=== PATIENT | male | born 1950 | race Caucasian/White ===

== ENCOUNTER 2017-04-05 16:06 | Inpatient (IN) | payer OTHER ==
[2017-04-05] MEDS ORDERED: ROCEPHIN VIAL 1 GM 1 GM in NS 50 ML IV + SPIKE MINIBAG* 50 ML IV SCH (18:50)
[2017-04-05] MEDS ORDERED: HumuLIN R SUBCUT PRN (18:50)
[2017-04-05 19:15] LABS: BASOPHILS % (AUTO) 0.6 % (0.2-1.0); EOSINOPHILS # (AUTO) 0.1 x10^3/uL (0.0-0.2); EOSINOPHILS % (AUTO) 1.5 % (0.9-2.9); HEMATOCRIT 40.7 % (42.0-54.0); HEMOGLOBIN 14.3 g/dL (13.5-18.0); LYMPHOCYTES # (AUTO) 0.9 X10^3/uL (1.3-2.9); LYMPHOCYTES % (AUTO) 15.8 % (21.0-51.0); MEAN CORPUSCULAR HEMOGLOBIN 29.2 pg (27.0-34.0); MEAN CORPUSCULAR VOLUME 83.5 fL (80.0-100.0); MEAN PLATELET VOLUME 9.2 fL (7.4-11.0); MONOCYTES # (AUTO) 0.8 x10^3/uL (0.3-0.8); MONOCYTES % (AUTO) 14.6 % (0.0-13.0); NEUTROPHILS # (AUTO) 3.7 x10^3/uL (2.2-4.8); NEUTROPHILS % (AUTO) 67.5 % (42.0-75.0); PLATELET COUNT 94 X10^3/uL (150.0-450.0); RED BLOOD COUNT 4.88 X10^6/uL (4.7-6.0); RED CELL DISTRIBUTION WIDTH 13.8 % (11.6-16.5); WHITE BLOOD COUNT 5.5 X10^3/uL (3.6-10.0)
[2017-04-05 19:31] LABS: ALANINE AMINOTRANSFERASE 42 Units/L (12-78); ALBUMIN 3.8 g/dL (3.4-5.0); ALKALINE PHOSPHATASE 77 Units/L (46-116); ASPARTATE AMINO TRANSFERASE 21 Units/L (15-37); BLOOD UREA NITROGEN 15 mg/dL (7-18); CARBON DIOXIDE 28.2 mmol/L (21-32); CHLORIDE 103 mmol/L (98-107); COR NA(FOR HYPERGLY) 138 mmol/L (136-145); CREATININE 1.09 mg/dL (0.70-1.30); SODIUM 137 mmol/L (136-145); TOTAL PROTEIN 7.2 g/dL (6.4-8.2); eGFR BLACK RACES > 60 (>60); eGFR NON BLACK RACES > 60 (>60)
[2017-04-05] MEDS: NS 1000 ML 1,000 ML IV SCH (20:18)
[2017-04-05 20:19] VITALS: BMI 26.5
[2017-04-05] MEDS: NORVASC TAB 5 MG PO SCH (20:21)
[2017-04-05] MEDS: SNACK - Diabetic Appropriate PO SCH (20:22)
[2017-04-06] MEDS: AMARYL TAB 4 MG PO SCH ×2 (06:23→17:34)
--- NOTE | 2017-04-06 08:48 | DR.UPDATE ---
H&P Update History and Physical Update: PATIENT WAS SEEN IN THE OFFICE ON 04/05/17. A H&P WAS COMPLETED PRIOR TO ADMISSION. PATIENT HAS BEEN SEEN AND EXAMINED WITH NO CHANGES NOTED. Changes noted: NO Yes with the following:
[2017-04-06] MEDS ORDERED: NS 100 ML IV + SPIKE MINIBAG* 100 ML IV ONE ×3 (09:14→20:10)
[2017-04-06] MEDS ORDERED: NS 250 ML IV 250 ML IV ONE (09:15)
[2017-04-06] MEDS: ZOSYN VIAL 4.5 GM IV SCH ×3 (09:20→21:37)
[2017-04-06] MEDS: NS 250 ML IV 250 ML IV SCH (09:20)
[2017-04-06] MEDS: NS 1000 ML 1,000 ML IV SCH (09:22)
[2017-04-06] MEDS: ASPIRIN EC 81 MG PO SCH (09:23)
[2017-04-06] MEDS: ZESTRIL TAB 10 MG PO SCH (09:23)
[2017-04-06] MEDS: ZANTAC PO SCH (09:23)
[2017-04-06] MEDS: TOPROL XL PO SCH (09:23)
[2017-04-06] MEDS: CLARITIN PO SCH (09:23)
[2017-04-06] MEDS: PRAVACHOL PO SCH (09:23)
[2017-04-06] MEDS: NORVASC TAB 5 MG PO SCH ×2 (09:23→20:19)
[2017-04-06] MEDS: LANTUS SC SCH ×2 (09:24→20:20)
[2017-04-06] MEDS: TAB-A-VITE PO SCH (09:25)
--- NOTE | 2017-04-06 11:00 | PCM.PROG ---
Progress Note - Progress Note for Day of Date: 04/06/17 - Subjective Subjective: WAS ADMITTED YESTERDAY FOR RLE CELLULITIS. HE IS ALERT AND ORIENTED, LYING IN BED ON MORNING ROUNDS. HE IS NOTED WITH NO COMPLAINTS. HE CONTINUES WITH REDNESS TO RIGHT LOWER LEG AND FOOT WITH SCAB NOTED TO FOOT. NO DRAINAGE NOTED. VITALS THIS AM ARE 98.8-100-21-94%-149/67. CBC WNL EXCEPT RBC4.65, HCT 39, PLT COUNT 74. CMP WNL EXCEPT GLUCOSE 171. WE WILL DISCONTINUE ROCEPHIN AND START ZOSYN 4.5 GM IV Q8H AND OBTAIN A WOUND CULTURE IF WOUND BEGINS TO DRAIN. WE PLAN TO RECHECK CBC AND CMP AND FOLLOW UP WITH PATIENT IN AM. - Past Medical Family Social History Past Med/Fam/Surg Hx: No changes since H&P Allergies: Allergies No Known Drug Allergies Allergy (Verified 04/05/17 18:03) - Review of Systems ROS: No change since H&P - Vital Signs and I&O's Vital Signs: Temperature 98.8 F Pulse Rate [Left Brachial] 100 Respiratory Rate 21 Blood Pressure [Left Arm] 149/67 Blood Pressure 151/70 O2 Sat by Pulse Oximetry 94 Intake and Output: Intake & Output 04/03/17 04/04/17 04/05/17 04/06/17 11:59 11:59 11:59 11:59 Intake Total 1337 Balance 1337 - Physical Exam Oriented: Normal Eyes: Normal Ear: Normal Nose: Normal Throat: Normal Respiratory: Normal Cardiovascular: Normal : Normal Auscultation: Bowel Sounds: Normal Palpation: Normal Tenderness: Normal Skin: Red, Hot, Wound (RIGHT LOWER LEG AND FOOT) Musculoskeletal: Normal Psychiatric: Normal Mood Description: Calm Affect: Normal Speech Pattern: Clear, Appropriate - Laboratory and Diagnostics Result Diagrams: 04/06/17 11:16 04/06/17 11:16 Labs: Laboratory WBC 5.5 X10^3/uL (3.6-10.0) 04/05/17 19:00 RBC 4.88 X10^6/uL (4.7-6.0) 04/05/17 19:00 Hgb 14.3 g/dL (13.5-18.0) 04/05/17 19:00 Hct 40.7 % (42.0-54.0) L 04/05/17 19:00 MCV 83.5 fL (80.0-100.0) 04/05/17 19:00 MCH 29.2 pg (27.0-34.0) 04/05/17 19:00 MCHC 35.0 g/dL (33.0-35.0) 04/05/17 19:00 RDW 13.8 % (11.6-16.5) 04/05/17 19:00 Plt Count 94 X10^3/uL (150.0-450.0) L 04/05/17 19:00 MPV 9.2 fL (7.4-11.0) 04/05/17 19:00 Neut % 67.5 % (42.0-75.0) 04/05/17 19:00 Lymph % 15.8 % (21.0-51.0) L 04/05/17 19:00 [place] % 14.6 % (0.0-13.0) H 04/05/17 19:00 Eos % 1.5 % (0.9-2.9) 04/05/17 19:00 Baso % 0.6 % (0.2-1.0) 04/05/17 19:00 Neut # 3.7 x10^3/uL (2.2-4.8) 04/05/17 19:00 Lymph # 0.9 X10^3/uL (1.3-2.9) L 04/05/17 19:00 [place] # 0.8 x10^3/uL (0.3-0.8) 04/05/17 19:00 Eos # 0.1 x10^3/uL (0.0-0.2) 04/05/17 19:00 Baso # 0.0 X10^3/uL (0.0-0.1) 04/05/17 19:00 Absolute Nucleated RBC 0.0 /100WBC 04/05/17 19:00 Sodium 137 mmol/L (136-145) 04/05/17 19:00 Corrected Sodium 138 mmol/L (136-145) 04/05/17 19:00 Potassium 4.1 mmol/L (3.5-5.1) 04/05/17 19:00 Chloride 103 mmol/L (98-107) 04/05/17 19:00 Carbon Dioxide 28.2 mmol/L (21-32) 04/05/17 19:00 BUN 15 mg/dL (7-18) 04/05/17 19:00 Creatinine 1.09 mg/dL (0.70-1.30) 04/05/17 19:00 Est GFR (MDRD) Af Amer > 60 (>60) 04/05/17 19:00 Est GFR (MDRD) Non-Af > 60 (>60) 04/05/17 19:00 Glucose 144 mg/dL (65-99) H 04/05/17 19:00 Hemoglobin A1c 9.0 % (4.5-6.2) H 04/05/17 19:00 Calcium 9.0 mg/dL (8.5-10.1) 04/05/17 19:00 Corrected Calcium TNP 04/05/17 19:00 Total Bilirubin 0.60 mg/dL (0.2-1.0) 04/05/17 19:00 AST 21 Units/L (15-37) 04/05/17 19:00 ALT 42 Units/L (12-78) 04/05/17 19:00 Alkaline Phosphatase 77 Units/L (46-116) 04/05/17 19:00 Total Protein 7.2 g/dL (6.4-8.2) 04/05/17 19:00 Albumin 3.8 g/dL (3.4-5.0) 04/05/17 19:00 Globulin 3.4 g/dL (2.5-4.5) 04/05/17 19:00 Albumin/Globulin Ratio 1.1 Ratio (1.1-2.1) 04/05/17 19:00 - Plan (1) Cellulitis of right leg Status: Acute Plan: ZOSYN 4.5GM IV Q8H, WOUND CULTURE, CONTINUE TO MONITOR
[2017-04-06 11:32] LABS: BASOPHILS % (AUTO) 0.6 % (0.2-1.0); EOSINOPHILS # (AUTO) 0.1 x10^3/uL (0.0-0.2); EOSINOPHILS % (AUTO) 1.1 % (0.9-2.9); HEMOGLOBIN 13.6 g/dL (13.5-18.0); LYMPHOCYTES # (AUTO) 0.9 X10^3/uL (1.3-2.9); MEAN CORPUSCULAR HEMOGLOBIN 29.2 pg (27.0-34.0); MEAN CORPUSCULAR HGB CONC 34.9 g/dL (33.0-35.0); MEAN CORPUSCULAR VOLUME 83.7 fL (80.0-100.0); MEAN PLATELET VOLUME 9.2 fL (7.4-11.0); MONOCYTES # (AUTO) 0.7 x10^3/uL (0.3-0.8); MONOCYTES % (AUTO) 14.9 % (0.0-13.0); NEUTROPHILS % (AUTO) 64.4 % (42.0-75.0); PLATELET COUNT 74 X10^3/uL (150.0-450.0); RED BLOOD COUNT 4.65 X10^6/uL (4.7-6.0); RED CELL DISTRIBUTION WIDTH 13.8 % (11.6-16.5); WHITE BLOOD COUNT 4.6 X10^3/uL (3.6-10.0)
[2017-04-06 11:40] LABS: ALANINE AMINOTRANSFERASE 35 Units/L (12-78); ALBUMIN 3.4 g/dL (3.4-5.0); ALKALINE PHOSPHATASE 70 Units/L (46-116); ASPARTATE AMINO TRANSFERASE 18 Units/L (15-37); BLOOD UREA NITROGEN 14 mg/dL (7-18); CALCIUM 8.6 mg/dL (8.5-10.1); CARBON DIOXIDE 27.2 mmol/L (21-32); CHLORIDE 103 mmol/L (98-107); COR NA(FOR HYPERGLY) 138 mmol/L (136-145); CREATININE 1.08 mg/dL (0.70-1.30); SODIUM 136 mmol/L (136-145); TOTAL PROTEIN 6.6 g/dL (6.4-8.2); eGFR BLACK RACES > 60 (>60); eGFR NON BLACK RACES > 60 (>60)
[2017-04-06] MEDS: SNACK - Diabetic Appropriate PO SCH (20:20)
[2017-04-07] MEDS: NS 1000 ML 1,000 ML IV SCH ×2 (00:59→15:17)
[2017-04-07] MEDS: NS 250 ML IV 250 ML IV SCH ×2 (00:59→21:19)
[2017-04-07 05:20] LABS: BASOPHILS % (AUTO) 0.4 % (0.2-1.0); EOSINOPHILS # (AUTO) 0.1 x10^3/uL (0.0-0.2); HEMOGLOBIN 13.4 g/dL (13.5-18.0); LYMPHOCYTES % (AUTO) 20.6 % (21.0-51.0); MEAN CORPUSCULAR HEMOGLOBIN 29.7 pg (27.0-34.0); MEAN CORPUSCULAR HGB CONC 35.2 g/dL (33.0-35.0); MEAN CORPUSCULAR VOLUME 84.6 fL (80.0-100.0); MEAN PLATELET VOLUME 9.6 fL (7.4-11.0); MONOCYTES # (AUTO) 0.8 x10^3/uL (0.3-0.8); MONOCYTES % (AUTO) 16.8 % (0.0-13.0); NEUTROPHILS % (AUTO) 61.2 % (42.0-75.0); PLATELET COUNT 79 X10^3/uL (150.0-450.0); RED BLOOD COUNT 4.49 X10^6/uL (4.7-6.0); RED CELL DISTRIBUTION WIDTH 13.6 % (11.6-16.5); WHITE BLOOD COUNT 4.9 X10^3/uL (3.6-10.0)
[2017-04-07] MEDS ORDERED: NS 100 ML IV + SPIKE MINIBAG* 100 ML IV ONE ×3 (05:28→20:53)
[2017-04-07 05:36] LABS: ALANINE AMINOTRANSFERASE 36 Units/L (12-78); ALBUMIN 3.2 g/dL (3.4-5.0); ALKALINE PHOSPHATASE 68 Units/L (46-116); ASPARTATE AMINO TRANSFERASE 23 Units/L (15-37); BLOOD UREA NITROGEN 15 mg/dL (7-18); CALCIUM 8.4 mg/dL (8.5-10.1); CARBON DIOXIDE 23.1 mmol/L (21-32); CHLORIDE 104 mmol/L (98-107); CREATININE 1.04 mg/dL (0.70-1.30); SODIUM 136 mmol/L (136-145); TOTAL PROTEIN 6.4 g/dL (6.4-8.2); eGFR BLACK RACES > 60 (>60); eGFR NON BLACK RACES > 60 (>60)
[2017-04-07] MEDS: ZOSYN VIAL 4.5 GM IV SCH ×3 (05:37→21:06)
[2017-04-07] MEDS: PRAVACHOL PO SCH (08:30)
[2017-04-07] MEDS: AMARYL TAB 4 MG PO SCH ×2 (08:30→17:27)
[2017-04-07] MEDS: TOPROL XL PO SCH (08:30)
[2017-04-07] MEDS: NORVASC TAB 5 MG PO SCH ×2 (08:30→21:06)
[2017-04-07] MEDS: ASPIRIN EC 81 MG PO SCH (08:30)
[2017-04-07] MEDS: ZANTAC PO SCH (08:31)
[2017-04-07] MEDS: CLARITIN PO SCH (08:31)
[2017-04-07] MEDS: TAB-A-VITE PO SCH (08:31)
[2017-04-07] MEDS: ZESTRIL TAB 10 MG PO SCH (08:31)
--- NOTE | 2017-04-07 10:11 | PCM.PROG ---
Progress Note - Progress Note for Day of Date: 04/07/17 - Subjective Subjective: WAS ADMITTED FOR RLE CELLULITIS. HE IS ALERT AND ORIENTED, LYING IN BED ON MORNING ROUNDS. PATIENT'S IS AT BEDSIDE. HE IS NOTED WITH NO COMPLAINTS. HE CONTINUES WITH REDNESS TO RIGHT LOWER LEG AND FOOT WITH SCAB NOTED TO FOOT. LEG APPEARS MORE ERYTHEMATOUS THAN YESTERDAY. NO DRAINAGE NOTED. VITALS THIS AM ARE 99.5-70-20-95%-122/57. CBC WNL EXCEPT RBC4.49, HGB 13.4, HCT 38, PLT COUNT 79. CMP WNL EXCEPT GLUCOSE 107, CALCIUM 8.4, ALBUMIN 3.2. WE WILL CONTINUE WITH CURRENT PLAN OF CARE. WE PLAN TO RECHECK CBC AND CMP AND FOLLOW UP WITH PATIENT IN AM. - Past Medical Family Social History Past Med/Fam/Surg Hx: No changes since H&P Allergies: Allergies No Known Drug Allergies Allergy (Verified 04/05/17 18:03) - Review of Systems ROS: No change since H&P - Vital Signs and I&O's Vital Signs: Temperature 98.8 F Pulse Rate [Right Brachial] 68 Pulse Rate [Left Brachial] 67 Respiratory Rate 20 Blood Pressure [Right Arm] 140/63 Blood Pressure [Left Arm] 144/70 Blood Pressure 151/70 O2 Sat by Pulse Oximetry 95 Intake and Output: Intake & Output 04/04/17 04/05/17 04/06/17 04/07/17 11:59 11:59 11:59 11:59 Intake Total 1337 2030 Balance 1337 2030 - Physical Exam Oriented: Normal Eyes: Normal Ear: Normal Nose: Normal Throat: Normal Respiratory: Normal Cardiovascular: Normal : Normal Auscultation: Bowel Sounds: Normal Palpation: Normal Tenderness: Normal Skin: Red, Hot, Wound (RIGHT LOWER LEG AND FOOT) Musculoskeletal: Normal Psychiatric: Normal Mood Description: Calm Affect: Normal Speech Pattern: Clear, Appropriate - Laboratory and Diagnostics Result Diagrams: 04/07/17 04:25 04/07/17 04:25 Labs: Laboratory WBC 4.9 X10^3/uL (3.6-10.0) 04/07/17 04:25 RBC 4.49 X10^6/uL (4.7-6.0) L 04/07/17 04:25 Hgb 13.4 g/dL (13.5-18.0) L 04/07/17 04:25 Hct 38.0 % (42.0-54.0) L 04/07/17 04:25 MCV 84.6 fL (80.0-100.0) 04/07/17 04:25 MCH 29.7 pg (27.0-34.0) 04/07/17 04:25 MCHC 35.2 g/dL (33.0-35.0) H 04/07/17 04:25 RDW 13.6 % (11.6-16.5) 04/07/17 04:25 Plt Count 79 X10^3/uL (150.0-450.0) L 04/07/17 04:25 MPV 9.6 fL (7.4-11.0) 04/07/17 04:25 Neut % 61.2 % (42.0-75.0) 04/07/17 04:25 Lymph % 20.6 % (21.0-51.0) L 04/07/17 04:25 [place] % 16.8 % (0.0-13.0) H 04/07/17 04:25 Eos % 1.0 % (0.9-2.9) 04/07/17 04:25 Baso % 0.4 % (0.2-1.0) 04/07/17 04:25 Neut # 3.0 x10^3/uL (2.2-4.8) 04/07/17 04:25 Lymph # 1.0 X10^3/uL (1.3-2.9) L 04/07/17 04:25 [place] # 0.8 x10^3/uL (0.3-0.8) 04/07/17 04:25 Eos # 0.1 x10^3/uL (0.0-0.2) 04/07/17 04:25 Baso # 0.0 X10^3/uL (0.0-0.1) 04/07/17 04:25 Absolute Nucleated RBC 0.1 /100WBC 04/07/17 04:25 Sodium 136 mmol/L (136-145) 04/07/17 04:25 Corrected Sodium TNP 04/07/17 04:25 Potassium 3.8 mmol/L (3.5-5.1) 04/07/17 04:25 Chloride 104 mmol/L (98-107) 04/07/17 04:25 Carbon Dioxide 23.1 mmol/L (21-32) 04/07/17 04:25 BUN 15 mg/dL (7-18) 04/07/17 04:25 Creatinine 1.04 mg/dL (0.70-1.30) 04/07/17 04:25 Est GFR (MDRD) Af Amer > 60 (>60) 04/07/17 04:25 Est GFR (MDRD) Non-Af > 60 (>60) 04/07/17 04:25 Glucose 107 mg/dL (65-99) H 04/07/17 04:25 Hemoglobin A1c 9.0 % (4.5-6.2) H 04/05/17 19:00 Calcium 8.4 mg/dL (8.5-10.1) L 04/07/17 04:25 Corrected Calcium 9.0 mg/dL (8.5-10.1) 04/07/17 04:25 Total Bilirubin 0.60 mg/dL (0.2-1.0) 04/07/17 04:25 AST 23 Units/L (15-37) 04/07/17 04:25 ALT 36 Units/L (12-78) 04/07/17 04:25 Alkaline Phosphatase 68 Units/L (46-116) 04/07/17 04:25 Total Protein 6.4 g/dL (6.4-8.2) 04/07/17 04:25 Albumin 3.2 g/dL (3.4-5.0) L 04/07/17 04:25 Globulin 3.2 g/dL (2.5-4.5) 04/07/17 04:25 Albumin/Globulin Ratio 1.0 Ratio (1.1-2.1) L 04/07/17 04:25 - Plan (1) Cellulitis of right leg Status: Acute Plan: ZOSYN 4.5GM IV Q8H, WOUND CULTURE, CONTINUE TO MONITOR (2) Diabetes mellitus Status: Chronic Qualifiers: Diabetes mellitus type: type 2 Diabetes mellitus complication status: with unspecified complications Diabetes mellitus assisted insulin use: with assisted use Qualified Code(s): E11.8 - Type 2 diabetes mellitus with unspecified complications; Z79.4 - detention (current) use of insulin Plan: CONTINUE AMARYL, CONTINUE LANTUS, CONTINUE TO MONITOR (3) Hyperlipidemia Status: Chronic Qualifiers: Hyperlipidemia type: mixed hyperlipidemia Qualified Code(s): E78.2 - Mixed hyperlipidemia Plan: CONTINUE PRAVACHOL, CONTINUE TO MONITOR (4) Hypertension Status: Acute Qualifiers: Hypertension type: essential hypertension Qualified Code(s): I10 - Essential (primary) hypertension Plan: CONTINUE AMLODIPINE, CONTINUE LISINOPRIL, CONTINUE TOPROL, CONTINUE TO MONITOR (5) GERD (gastroesophageal reflux disease) Status: Acute Qualifiers: Esophagitis presence: esophagitis presence not specified Qualified Code(s) : K21.9 - Gastro-esophageal reflux disease without esophagitis Plan: CONTINUE ZANTAC, CONTINUE TO MONITOR
[2017-04-07] MEDS: SNACK - Diabetic Appropriate PO SCH (21:06)
[2017-04-07] MEDS: LANTUS SC SCH (21:07)
[2017-04-07] MEDS ORDERED: TYLENOL 325 MG TAB PO PRN (22:00)
[2017-04-08] MEDS: NS 250 ML IV 250 ML IV SCH ×2 (01:02→13:46)
[2017-04-08 04:59] LABS: BASOPHILS % (AUTO) 0.5 % (0.2-1.0); EOSINOPHILS # (AUTO) 0.1 x10^3/uL (0.0-0.2); EOSINOPHILS % (AUTO) 2.7 % (0.9-2.9); HEMATOCRIT 39.9 % (42.0-54.0); HEMOGLOBIN 13.8 g/dL (13.5-18.0); LYMPHOCYTES # (AUTO) 0.9 X10^3/uL (1.3-2.9); LYMPHOCYTES % (AUTO) 21.9 % (21.0-51.0); MEAN CORPUSCULAR HEMOGLOBIN 29.5 pg (27.0-34.0); MEAN CORPUSCULAR HGB CONC 34.5 g/dL (33.0-35.0); MEAN CORPUSCULAR VOLUME 85.4 fL (80.0-100.0); MEAN PLATELET VOLUME 9.3 fL (7.4-11.0); MONOCYTES # (AUTO) 0.8 x10^3/uL (0.3-0.8); MONOCYTES % (AUTO) 19.4 % (0.0-13.0); NEUTROPHILS # (AUTO) 2.2 x10^3/uL (2.2-4.8); NEUTROPHILS % (AUTO) 55.5 % (42.0-75.0); PLATELET COUNT 76 X10^3/uL (150.0-450.0); RED BLOOD COUNT 4.68 X10^6/uL (4.7-6.0); RED CELL DISTRIBUTION WIDTH 13.4 % (11.6-16.5); WHITE BLOOD COUNT 3.9 X10^3/uL (3.6-10.0)
[2017-04-08 05:10] LABS: ALANINE AMINOTRANSFERASE 41 Units/L (12-78); ALBUMIN 3.1 g/dL (3.4-5.0); ALKALINE PHOSPHATASE 87 Units/L (46-116); ASPARTATE AMINO TRANSFERASE 31 Units/L (15-37); BLOOD UREA NITROGEN 18 mg/dL (7-18); CALCIUM 8.5 mg/dL (8.5-10.1); CHLORIDE 107 mmol/L (98-107); COR CA(FOR HYPOALB) 9.2 mg/dL (8.5-10.1); COR NA(FOR HYPERGLY) 139 mmol/L (136-145); CREATININE 1.12 mg/dL (0.70-1.30); SODIUM 138 mmol/L (136-145); TOTAL PROTEIN 6.4 g/dL (6.4-8.2); eGFR BLACK RACES > 60 (>60); eGFR NON BLACK RACES > 60 (>60)
[2017-04-08] MEDS ORDERED: NS 100 ML IV + SPIKE MINIBAG* 100 ML IV ONE ×3 (05:12→20:54)
[2017-04-08] MEDS: NS 1000 ML 1,000 ML IV SCH ×2 (05:30→21:23)
[2017-04-08] MEDS: ZOSYN VIAL 4.5 GM IV SCH ×3 (05:30→21:19)
[2017-04-08] MEDS: AMARYL TAB 4 MG PO SCH ×2 (08:30→16:23)
[2017-04-08] MEDS: ASPIRIN EC 81 MG PO SCH (09:15)
[2017-04-08] MEDS: ZANTAC PO SCH (09:15)
[2017-04-08] MEDS: TOPROL XL PO SCH (09:15)
[2017-04-08] MEDS: ZESTRIL TAB 10 MG PO SCH (09:15)
[2017-04-08] MEDS: TAB-A-VITE PO SCH (09:20)
[2017-04-08] MEDS: NORVASC TAB 5 MG PO SCH ×2 (09:20→21:16)
[2017-04-08] MEDS: CLARITIN PO SCH (09:20)
[2017-04-08] MEDS: PRAVACHOL PO SCH (09:20)
[2017-04-08] MEDS: VANCOMYCIN 1 GM PREMIX (ADDVANTAGE) 250 ML IV SCH ×2 (10:56→21:15)
[2017-04-08] MEDS ORDERED: PHARMACY CONSULT - VANCOMYCIN XX SCH (11:00)
--- NOTE | 2017-04-08 11:01 | PCM.PROG ---
Progress Note - Progress Note for Day of Date: 04/08/17 - Subjective Subjective: WAS ADMITTED FOR RLE CELLULITIS. HE IS ALERT AND ORIENTED, LYING IN BED ON MORNING ROUNDS. PATIENT'S IS AT BEDSIDE. HE CONTINUES WITH REDNESS TO RIGHT LOWER LEG AND FOOT WITH SCAB NOTED TO FOOT, UNCHANGED SINCE YESTERDAY. VITALS THIS AM ARE 98.1-70-20-97%-144/66. CBC WNL EXCEPT RBC 4.68, HCT 39.9, PLT COUNT 76. CMP WNL EXCEPT GLUCOSE 126, ALBUMIN 3.1. WE WILL ADD VANCOMYCIN 1GM IV Q12H TO TREATMENT PLAN. WE PLAN TO RECHECK CBC AND CMP AND FOLLOW UP WITH PATIENT IN AM. - Past Medical Family Social History Past Med/Fam/Surg Hx: No changes since H&P Allergies: Allergies No Known Drug Allergies Allergy (Verified 04/05/17 18:03) - Review of Systems ROS: No change since H&P - Vital Signs and I&O's Vital Signs: Temperature 98.1 F Pulse Rate [Right Brachial] 74 Pulse Rate [Left Brachial] 67 Respiratory Rate 20 Blood Pressure [Right Arm] 131/61 Blood Pressure [Left Arm] 144/70 Blood Pressure 151/70 O2 Sat by Pulse Oximetry 97 Intake and Output: Intake & Output 04/05/17 04/06/17 04/07/17 04/08/17 11:59 11:59 11:59 11:59 Intake Total 1337 2030 2350 Balance 1337 2030 2350 - Physical Exam Oriented: Normal Eyes: Normal Ear: Normal Nose: Normal Throat: Normal Respiratory: Normal Cardiovascular: Normal : Normal Auscultation: Bowel Sounds: Normal Palpation: Normal Tenderness: Normal Skin: Red, Hot, Wound (RIGHT LOWER LEG AND FOOT) Musculoskeletal: Normal Psychiatric: Normal Mood Description: Calm Affect: Normal Speech Pattern: Clear, Appropriate - Laboratory and Diagnostics Result Diagrams: 04/08/17 04:10 04/08/17 04:10 Labs: 04/07/17 15:18 Foot - Right Gram Stain - Final 04/07/17 15:18 Foot - Right Wound Culture - Preliminary Laboratory WBC 3.9 X10^3/uL (3.6-10.0) 04/08/17 04:10 RBC 4.68 X10^6/uL (4.7-6.0) L 04/08/17 04:10 Hgb 13.8 g/dL (13.5-18.0) 04/08/17 04:10 Hct 39.9 % (42.0-54.0) L 04/08/17 04:10 MCV 85.4 fL (80.0-100.0) 04/08/17 04:10 MCH 29.5 pg (27.0-34.0) 04/08/17 04:10 MCHC 34.5 g/dL (33.0-35.0) 04/08/17 04:10 RDW 13.4 % (11.6-16.5) 04/08/17 04:10 Plt Count 76 X10^3/uL (150.0-450.0) L 04/08/17 04:10 MPV 9.3 fL (7.4-11.0) 04/08/17 04:10 Neut % 55.5 % (42.0-75.0) 04/08/17 04:10 Lymph % 21.9 % (21.0-51.0) 04/08/17 04:10 [place] % 19.4 % (0.0-13.0) H 04/08/17 04:10 Eos % 2.7 % (0.9-2.9) 04/08/17 04:10 Baso % 0.5 % (0.2-1.0) 04/08/17 04:10 Neut # 2.2 x10^3/uL (2.2-4.8) 04/08/17 04:10 Lymph # 0.9 X10^3/uL (1.3-2.9) L 04/08/17 04:10 [place] # 0.8 x10^3/uL (0.3-0.8) 04/08/17 04:10 Eos # 0.1 x10^3/uL (0.0-0.2) 04/08/17 04:10 Baso # 0.0 X10^3/uL (0.0-0.1) 04/08/17 04:10 Absolute Nucleated RBC 0.1 /100WBC 04/08/17 04:10 Sodium 138 mmol/L (136-145) 04/08/17 04:10 Corrected Sodium 139 mmol/L (136-145) 04/08/17 04:10 Potassium 3.6 mmol/L (3.5-5.1) 04/08/17 04:10 Chloride 107 mmol/L (98-107) 04/08/17 04:10 Carbon Dioxide 23.0 mmol/L (21-32) 04/08/17 04:10 BUN 18 mg/dL (7-18) 04/08/17 04:10 Creatinine 1.12 mg/dL (0.70-1.30) 04/08/17 04:10 Est GFR (MDRD) Af Amer > 60 (>60) 04/08/17 04:10 Est GFR (MDRD) Non-Af > 60 (>60) 04/08/17 04:10 Glucose 126 mg/dL (65-99) H 04/08/17 04:10 Hemoglobin A1c 9.0 % (4.5-6.2) H 04/05/17 19:00 Calcium 8.5 mg/dL (8.5-10.1) 04/08/17 04:10 Corrected Calcium 9.2 mg/dL (8.5-10.1) 04/08/17 04:10 Total Bilirubin 0.70 mg/dL (0.2-1.0) 04/08/17 04:10 AST 31 Units/L (15-37) 04/08/17 04:10 ALT 41 Units/L (12-78) 04/08/17 04:10 Alkaline Phosphatase 87 Units/L (46-116) 04/08/17 04:10 Total Protein 6.4 g/dL (6.4-8.2) 04/08/17 04:10 Albumin 3.1 g/dL (3.4-5.0) L 04/08/17 04:10 Globulin 3.3 g/dL (2.5-4.5) 04/08/17 04:10 Albumin/Globulin Ratio 0.9 Ratio (1.1-2.1) L 04/08/17 04:10 - Plan (1) Cellulitis of right leg Status: Acute Plan: START VANCOMYCIN 1GM IV Q12H, CONTINUE ZOSYN 4.5GM IV Q8H, WOUND CULTURE, CONTINUE TO MONITOR (2) Diabetes mellitus Status: Chronic Qualifiers: Diabetes mellitus type: type 2 Diabetes mellitus complication status: with unspecified complications Diabetes mellitus buttermilk drier operator insulin use: with buttermilk drier operator use Qualified Code(s): E11.8 - Type 2 diabetes mellitus with unspecified complications; Z79.4 - emt intermediate (current) use of insulin Plan: CONTINUE AMARYL, CONTINUE LANTUS, CONTINUE TO MONITOR (3) Hyperlipidemia Status: Chronic Qualifiers: Hyperlipidemia type: mixed hyperlipidemia Qualified Code(s): E78.2 - Mixed hyperlipidemia Plan: CONTINUE PRAVACHOL, CONTINUE TO MONITOR (4) Hypertension Status: Acute Qualifiers: Hypertension type: essential hypertension Qualified Code(s): I10 - Essential (primary) hypertension Plan: CONTINUE AMLODIPINE, CONTINUE LISINOPRIL, CONTINUE TOPROL, CONTINUE TO MONITOR (5) GERD (gastroesophageal reflux disease) Status: Acute Qualifiers: Esophagitis presence: esophagitis presence not specified Qualified Code(s) : K21.9 - Gastro-esophageal reflux disease without esophagitis Plan: CONTINUE ZANTAC, CONTINUE TO MONITOR
[2017-04-08] MEDS: SNACK - Diabetic Appropriate PO SCH (21:14)
[2017-04-08] MEDS: COLACE CAP 100 MG PO SCH (21:16)
[2017-04-08] MEDS: LANTUS SC SCH (22:03)
[2017-04-09] MEDS ORDERED: NS 100 ML IV + SPIKE MINIBAG* 100 ML IV ONE ×3 (05:22→21:06)
[2017-04-09] MEDS: ZOSYN VIAL 4.5 GM IV SCH ×3 (05:43→22:26)
[2017-04-09 05:47] LABS: ALANINE AMINOTRANSFERASE 50 Units/L (12-78); ALKALINE PHOSPHATASE 88 Units/L (46-116); ASPARTATE AMINO TRANSFERASE 35 Units/L (15-37); BASOPHILS % (AUTO) 0.6 % (0.2-1.0); BLOOD UREA NITROGEN 18 mg/dL (7-18); CALCIUM 8.3 mg/dL (8.5-10.1); CARBON DIOXIDE 23.5 mmol/L (21-32); CHLORIDE 106 mmol/L (98-107); COR CA(FOR HYPOALB) 9.1 mg/dL (8.5-10.1); CREATININE 0.97 mg/dL (0.70-1.30); EOSINOPHILS # (AUTO) 0.2 x10^3/uL (0.0-0.2); EOSINOPHILS % (AUTO) 4.4 % (0.9-2.9); HEMATOCRIT 37.4 % (42.0-54.0); HEMOGLOBIN 13.1 g/dL (13.5-18.0); LYMPHOCYTES # (AUTO) 1.1 X10^3/uL (1.3-2.9); LYMPHOCYTES % (AUTO) 25.6 % (21.0-51.0); MEAN CORPUSCULAR HEMOGLOBIN 29.8 pg (27.0-34.0); MEAN CORPUSCULAR HGB CONC 35.1 g/dL (33.0-35.0); MEAN CORPUSCULAR VOLUME 84.8 fL (80.0-100.0); MEAN PLATELET VOLUME 9.5 fL (7.4-11.0); MONOCYTES # (AUTO) 0.8 x10^3/uL (0.3-0.8); MONOCYTES % (AUTO) 18.8 % (0.0-13.0); NEUTROPHILS # (AUTO) 2.1 x10^3/uL (2.2-4.8); NEUTROPHILS % (AUTO) 50.6 % (42.0-75.0); PLATELET COUNT 95 X10^3/uL (150.0-450.0); RED BLOOD COUNT 4.41 X10^6/uL (4.7-6.0); RED CELL DISTRIBUTION WIDTH 13.6 % (11.6-16.5); SODIUM 137 mmol/L (136-145); TOTAL PROTEIN 6.1 g/dL (6.4-8.2); WHITE BLOOD COUNT 4.1 X10^3/uL (3.6-10.0); eGFR BLACK RACES > 60 (>60); eGFR NON BLACK RACES > 60 (>60)
[2017-04-09 06:56] LABS: BAND NEUTROPHILS % 1 % (0-10); PLATELET MORPHOLOGY COMMENT NORMAL (NORMAL)
[2017-04-09] MEDS: TOPROL XL PO SCH (08:43)
[2017-04-09] MEDS: TAB-A-VITE PO SCH (08:43)
[2017-04-09] MEDS: ASPIRIN EC 81 MG PO SCH (08:43)
[2017-04-09] MEDS: CLARITIN PO SCH (08:43)
[2017-04-09] MEDS: NORVASC TAB 5 MG PO SCH ×2 (08:43→22:29)
[2017-04-09] MEDS: ZANTAC PO SCH (08:43)
[2017-04-09] MEDS: PRAVACHOL PO SCH (08:43)
[2017-04-09] MEDS: AMARYL TAB 4 MG PO SCH ×2 (08:43→17:24)
[2017-04-09] MEDS: ZESTRIL TAB 10 MG PO SCH (08:43)
[2017-04-09] MEDS: VANCOMYCIN 1 GM PREMIX (ADDVANTAGE) 250 ML IV SCH ×2 (08:46→22:28)
[2017-04-09] MEDS: NS 250 ML IV 250 ML IV SCH (08:47)
--- NOTE | 2017-04-09 10:17 | PCM.PROG ---
Progress Note - Progress Note for Day of Date: 04/09/17 - Subjective Subjective: IS ALERT AND ORIENTED, LYING IN BED ON MORNING ROUNDS. REDNESS TO RIGHT LEG APPEARS TO BE DECREASED SINCE YESTERDAY. VITALS THIS AM ARE 98.8-69-20-96%-140/62. CBC WNL EXCEPT RBC 4.41, HGB 13.1,HCT 37.4, PLT COUNT 95. CMP WNL EXCEPT GLUCOSE 103, CALCIUM 8.3, TOTAL PROTEIN 6.1, ALBUMIN 3.0. WE WILL CONTINUE ANOTHER DAY OF ANTIBIOTIC THERAPY. WE PLAN TO RECHECK CBC AND CMP. WILL FOLLOW UP WITH PATIENT IN THE MORNING. - Past Medical Family Social History Past Med/Fam/Surg Hx: No changes since H&P Allergies: Allergies No Known Drug Allergies Allergy (Verified 04/05/17 18:03) - Review of Systems ROS: No change since H&P - Vital Signs and I&O's Vital Signs: Temperature 98.8 F Pulse Rate [Right Brachial] 69 Pulse Rate [Left Brachial] 69 Respiratory Rate 20 Blood Pressure [Right Arm] 131/64 Blood Pressure [Left Arm] 140/62 Blood Pressure 151/70 O2 Sat by Pulse Oximetry 96 Intake and Output: Intake & Output 04/06/17 04/07/17 04/08/17 04/09/17 11:59 11:59 11:59 11:59 Intake Total 1337 2030 2350 1570 Balance 1337 2030 2350 1570 - Physical Exam Oriented: Normal Eyes: Normal Ear: Normal Nose: Normal Throat: Normal Respiratory: Normal Cardiovascular: Normal : Normal Auscultation: Bowel Sounds: Normal Palpation: Normal Tenderness: Normal Skin: Red, Hot, Wound (RIGHT LOWER LEG AND FOOT) Musculoskeletal: Normal Psychiatric: Normal Mood Description: Calm Affect: Normal Speech Pattern: Clear, Appropriate - Laboratory and Diagnostics Result Diagrams: 04/09/17 03:40 04/09/17 03:40 Labs: 04/07/17 15:18 Foot - Right Gram Stain - Final 04/07/17 15:18 Foot - Right Wound Culture - Preliminary Laboratory WBC 4.1 X10^3/uL (3.6-10.0) 04/09/17 03:40 RBC 4.41 X10^6/uL (4.7-6.0) L 04/09/17 03:40 Hgb 13.1 g/dL (13.5-18.0) L 04/09/17 03:40 Hct 37.4 % (42.0-54.0) L 04/09/17 03:40 MCV 84.8 fL (80.0-100.0) 04/09/17 03:40 MCH 29.8 pg (27.0-34.0) 04/09/17 03:40 MCHC 35.1 g/dL (33.0-35.0) H 04/09/17 03:40 RDW 13.6 % (11.6-16.5) 04/09/17 03:40 Plt Count 95 X10^3/uL (150.0-450.0) L 04/09/17 03:40 Plt Count Comment Adequate (ADEQUATE) 04/09/17 03:40 MPV 9.5 fL (7.4-11.0) 04/09/17 03:40 Neut % 50.6 % (42.0-75.0) 04/09/17 03:40 Lymph % 25.6 % (21.0-51.0) 04/09/17 03:40 [place] % 18.8 % (0.0-13.0) H 04/09/17 03:40 Eos % 4.4 % (0.9-2.9) H 04/09/17 03:40 Baso % 0.6 % (0.2-1.0) 04/09/17 03:40 Neut # 2.1 x10^3/uL (2.2-4.8) L 04/09/17 03:40 Lymph # 1.1 X10^3/uL (1.3-2.9) L 04/09/17 03:40 [place] # 0.8 x10^3/uL (0.3-0.8) 04/09/17 03:40 Eos # 0.2 x10^3/uL (0.0-0.2) 04/09/17 03:40 Baso # 0.0 X10^3/uL (0.0-0.1) 04/09/17 03:40 Absolute Nucleated RBC 0.1 /100WBC 04/09/17 03:40 Total Counted 100 04/09/17 03:40 Neutrophils % (Manual) 48 % (39-76) 04/09/17 03:40 Band Neutrophils % 1 % (0-10) 04/09/17 03:40 Lymphocytes % (Manual) 32 % (13-43) 04/09/17 03:40 Monocytes % (Manual) 13 % (4-9) H 04/09/17 03:40 Eosinophils % (Manual) 6 % (0-6) 04/09/17 03:40 Plt Morphology Comment Normal (NORMAL) 04/09/17 03:40 RBC Morphology Normal (NORMAL) 04/09/17 03:40 Sodium 137 mmol/L (136-145) 04/09/17 03:40 Corrected Sodium TNP 04/09/17 03:40 Potassium 3.8 mmol/L (3.5-5.1) 04/09/17 03:40 Chloride 106 mmol/L (98-107) 04/09/17 03:40 Carbon Dioxide 23.5 mmol/L (21-32) 04/09/17 03:40 BUN 18 mg/dL (7-18) 04/09/17 03:40 Creatinine 0.97 mg/dL (0.70-1.30) 04/09/17 03:40 Est GFR (MDRD) Af Amer > 60 (>60) 04/09/17 03:40 Est GFR (MDRD) Non-Af > 60 (>60) 04/09/17 03:40 Glucose 103 mg/dL (65-99) H 04/09/17 03:40 Hemoglobin A1c 9.0 % (4.5-6.2) H 04/05/17 19:00 Calcium 8.3 mg/dL (8.5-10.1) L 04/09/17 03:40 Corrected Calcium 9.1 mg/dL (8.5-10.1) 04/09/17 03:40 Total Bilirubin 0.60 mg/dL (0.2-1.0) 04/09/17 03:40 AST 35 Units/L (15-37) 04/09/17 03:40 ALT 50 Units/L (12-78) 04/09/17 03:40 Alkaline Phosphatase 88 Units/L (46-116) 04/09/17 03:40 Total Protein 6.1 g/dL (6.4-8.2) L 04/09/17 03:40 Albumin 3.0 g/dL (3.4-5.0) L 04/09/17 03:40 Globulin 3.1 g/dL (2.5-4.5) 04/09/17 03:40 Albumin/Globulin Ratio 1.0 Ratio (1.1-2.1) L 04/09/17 03:40 - Plan (1) Cellulitis of right leg Status: Acute Plan: CONTINUE VANCOMYCIN 1GM IV Q12H, CONTINUE ZOSYN 4.5GM IV Q8H, WOUND CULTURE, CONTINUE TO MONITOR (2) Diabetes mellitus Status: Chronic Qualifiers: Diabetes mellitus type: type 2 Diabetes mellitus complication status: with unspecified complications Diabetes mellitus rodent exterminator insulin use: with rodent exterminator use Qualified Code(s): E11.8 - Type 2 diabetes mellitus with unspecified complications; Z79.4 - rodent exterminator (current) use of insulin Plan: CONTINUE AMARYL, CONTINUE LANTUS, CONTINUE TO MONITOR (3) Hyperlipidemia Status: Chronic Qualifiers: Hyperlipidemia type: mixed hyperlipidemia Qualified Code(s): E78.2 - Mixed hyperlipidemia Plan: CONTINUE PRAVACHOL, CONTINUE TO MONITOR (4) Hypertension Status: Acute Qualifiers: Hypertension type: essential hypertension Qualified Code(s): I10 - Essential (primary) hypertension Plan: CONTINUE AMLODIPINE, CONTINUE LISINOPRIL, CONTINUE TOPROL, CONTINUE TO MONITOR (5) GERD (gastroesophageal reflux disease) Status: Acute Qualifiers: Esophagitis presence: esophagitis presence not specified Qualified Code(s) : K21.9 - Gastro-esophageal reflux disease without esophagitis Plan: CONTINUE ZANTAC, CONTINUE TO MONITOR
[2017-04-09] MEDS: NS 1000 ML 1,000 ML IV SCH (14:53)
[2017-04-09] MEDS: SNACK - Diabetic Appropriate PO SCH (21:00)
[2017-04-09 21:09] LABS: CREATININE 1.09 mg/dL (0.70-1.30)
[2017-04-09] MEDS: COLACE CAP 100 MG PO SCH (22:29)
[2017-04-09] MEDS: LANTUS SC SCH (22:33)
[2017-04-10] MEDS ORDERED: NS 100 ML IV + SPIKE MINIBAG* 100 ML IV ONE ×2 (05:40→14:46)
[2017-04-10] MEDS: ZOSYN VIAL 4.5 GM IV SCH ×2 (05:46→14:57)
[2017-04-10] MEDS: AMARYL TAB 4 MG PO SCH ×2 (06:09→17:23)
[2017-04-10 06:13] LABS: BASOPHILS % (AUTO) 0.9 % (0.2-1.0); EOSINOPHILS # (AUTO) 0.3 x10^3/uL (0.0-0.2); EOSINOPHILS % (AUTO) 6.2 % (0.9-2.9); HEMATOCRIT 38.5 % (42.0-54.0); HEMOGLOBIN 13.5 g/dL (13.5-18.0); LYMPHOCYTES % (AUTO) 22.6 % (21.0-51.0); MEAN CORPUSCULAR HEMOGLOBIN 29.7 pg (27.0-34.0); MEAN CORPUSCULAR HGB CONC 34.9 g/dL (33.0-35.0); MEAN PLATELET VOLUME 9.6 fL (7.4-11.0); MONOCYTES # (AUTO) 0.6 x10^3/uL (0.3-0.8); MONOCYTES % (AUTO) 13.2 % (0.0-13.0); NEUTROPHILS # (AUTO) 2.4 x10^3/uL (2.2-4.8); NEUTROPHILS % (AUTO) 57.1 % (42.0-75.0); PLATELET COUNT 121 X10^3/uL (150.0-450.0); RED BLOOD COUNT 4.53 X10^6/uL (4.7-6.0); RED CELL DISTRIBUTION WIDTH 13.7 % (11.6-16.5); WHITE BLOOD COUNT 4.3 X10^3/uL (3.6-10.0)
[2017-04-10 06:39] LABS: ALANINE AMINOTRANSFERASE 57 Units/L (12-78); ALKALINE PHOSPHATASE 84 Units/L (46-116); ASPARTATE AMINO TRANSFERASE 35 Units/L (15-37); BLOOD UREA NITROGEN 17 mg/dL (7-18); CALCIUM 8.4 mg/dL (8.5-10.1); CARBON DIOXIDE 23.4 mmol/L (21-32); CHLORIDE 108 mmol/L (98-107); COR CA(FOR HYPOALB) 9.2 mg/dL (8.5-10.1); CREATININE 0.96 mg/dL (0.70-1.30); SODIUM 140 mmol/L (136-145); TOTAL PROTEIN 6.5 g/dL (6.4-8.2); eGFR BLACK RACES > 60 (>60); eGFR NON BLACK RACES > 60 (>60)
[2017-04-10] MEDS: PRAVACHOL PO SCH (10:45)
[2017-04-10] MEDS: VANCOMYCIN 1 GM PREMIX (ADDVANTAGE) 250 ML IV SCH (10:45)
[2017-04-10] MEDS: TOPROL XL PO SCH (10:45)
[2017-04-10] MEDS: TAB-A-VITE PO SCH (10:45)
[2017-04-10] MEDS: NORVASC TAB 5 MG PO SCH (10:45)
[2017-04-10] MEDS: CLARITIN PO SCH (10:45)
[2017-04-10] MEDS: ASPIRIN EC 81 MG PO SCH (10:45)
[2017-04-10] MEDS: ZESTRIL TAB 10 MG PO SCH (10:45)
[2017-04-10] MEDS: ZANTAC PO SCH (10:49)
[2017-04-10 17:43] VITALS: BP 184/78
== END 2017-04-10 19:05 | disposition home or self-care (01) | DRG 603 ==
LOC: MED/SURG 16:06 → OBSVTOIN 04-07 08:00
PROVIDERS: ADMIT Internal Medicine; ATTEND Internal Medicine
DX: L03.115 Cellulitis of right lower limb (principal); L04.3 Acute lymphadenitis of lower limb; I25.10 Atherosclerotic heart disease of native coronary artery without angina pectoris; E11.65 Type 2 diabetes mellitus with hyperglycemia; Z79.4 Long term (current) use of insulin; I10 Essential (primary) hypertension; E78.2 Mixed hyperlipidemia; K21.9 Gastro-esophageal reflux disease without esophagitis
CPT/HCPCS: 36415; 80053; 80202; 82565; 83036; 85025; 87070; 87075; 87205; A4222; G0378; J0696; J1815; J2543; J3370

== ENCOUNTER 2020-06-07 17:40 | Inpatient (IN) ==
--- NOTE | 2020-06-07 17:56 | DR.GENAD ---
HPI Time Seen Time Seen by Provider: 06/07/20 17:59 Complaint/Symptoms Chief Complaint Doctors Comments: patient complaint of sudden weakness and diaphoresis at the house. No fever, no chest pain, Cardiac HX Source History Provided: Patient Mode of Arrival Mode of Arrival: Ambulatory Timing Came on: Suddenly Duration Duration: Constant How lon Duration: Hours Severity Severity: Moderate Modifying Factors Worsens:: unknown Associated Signs and Symptoms Associated Signs and Symptoms: diaphoresis Other History Other History: diabetes PMH PMH Past Medical History: Arthritis, COPD, Diabetes, Hypertension and PUD Past Surgical History: Yes Surgical History: Appendectomy, CABG/Valve Surgery, Ortho Surgery and Tonsillectomy Family History Family Medical History: Cancer, Heart Failure, Sudden Cardiac and Hypertension Social History Do you use any recreational Drugs:: No ROS Review of Systems Constitutional: Weakness Eyes: No Symptoms Reported ENTM: No Symptoms Reported Respiratoy: No Symptoms Reported Cardiovascular: No Symptoms Reported Gastrointestinal/Abdominal: No Symptoms Reported Genitourinary: No Symptoms Reported Neurological: Weakness Musculoskeletal: No Symptoms Reported Integumentary: No Symptoms Reported Hematologic/Lymphatic: No Symptoms Reported Endocrine: No Symptoms Reported Psychiatric: No Symptoms Reported All Other Systems: Reviewed and Negative PE Vital Signs Vitals: Temperature 99 F Pulse Rate [Left Radial] 73 Pulse Rate 78 Respiratory Rate 19 Blood Pressure [Right Arm] 182/79 Blood Pressure [Left Arm] 140/62 Blood Pressure 180/100 O2 Sat by Pulse Oximetry 96 General Limitations: No Limitations General Appearance: Alert and In No Apparent Distress Head Head Exam: Normal Inspection, Atraumatic and Normocephalic Eyes Eye exam: Normal Appearance and EOMI ENT ENT Exam: Normal Exam and Normal Oropharynx External Ear Exam: Normal External Inspection Nose Exam: Normal Nose Exam Mouth Exam: Normal Inspection Throat Exam: Normal Inspection Neck Neck Exam: Normal Inspection, Full ROM and Trachea Midline Chest Chest Inspection: Normal Inspection Respiratory Respiratory Exam: Normal Lung Sounds Bilat Respiratory Exam: Bilateral: Clear to Auscultation Cardiovascular Cardiovascular Exam: Regular Rate and Other (pacemaker left chest) Abdominal Exam Abdominal Exam: Normal Inspection Extremities Extremities Exam: Normal Inspection and Full ROM Back Back Exam: Normal Inspection and Full ROM Neurologic Neurological Exam: Alert, Oriented X3, CN II-XII Intact and Normal Gait Psychiatric Psychiatric Exam: Anxious Skin Skin Exam: Normal Color and Diaphoresis COURSE Treatment Treatment: patients BP was over 200 systolic and dropped to 160s after 40mg labetalol. Later it returned to over 200 systolic and labetalol was repeated. Consultation Called: 22:38 Call Returned: 22:50 Consultation Comments: case discussed with DR. Patrick admit for uncontrolled hypertension, nonspecific abdominal pain ROR Labs Reviewed Result Diagrams: 06/07/20 18:20 06/07/20 18:20 Laboratory: WBC 9.1 X10^3/uL (3.6-10.0) 06/07/20 18:20 RBC 5.29 X10^6/uL (4.7-6.0) 06/07/20 18:20 Hgb 15.6 g/dL (13.5-18.0) 06/07/20 18:20 Hct 46.0 % (42.0-54.0) 06/07/20 18:20 MCV 86.9 fL (80.0-100.0) 06/07/20 18:20 MCH 29.6 pg (27.0-34.0) 06/07/20 18:20 MCHC 34.0 g/dL (33.0-35.0) 06/07/20 18:20 RDW 13.1 % (11.6-16.5) 06/07/20 18:20 Plt Count 100 X10^3/uL (150.0-450.0) L 06/07/20 18:20 MPV 9.8 fL (7.4-11.0) 06/07/20 18:20 Neut % (Auto) 73.5 % (42.0-75.0) 06/07/20 18:20 Lymph % (Auto) 13.5 % (21.0-51.0) L 06/07/20 18:20 [place] % (Auto) 6.8 % (0.0-13.0) 06/07/20 18:20 Eos % (Auto) 5.5 % (0.9-2.9) H 06/07/20 18:20 Baso % (Auto) 0.7 % (0.2-1.0) 06/07/20 18:20 Neut # (Auto) 6.7 x10^3/uL (2.2-4.8) H 06/07/20 18:20 Lymph # (Auto) 1.2 X10^3/uL (1.3-2.9) L 06/07/20 18:20 [place] # (Auto) 0.6 x10^3/uL (0.3-0.8) 06/07/20 18:20 Eos # (Auto) 0.5 x10^3/uL (0.0-0.2) H 06/07/20 18:20 Baso # (Auto) 0.1 X10^3/uL (0.0-0.1) 06/07/20 18:20 Absolute Nucleated RBC 0.1 /100WBC 06/07/20 18:20 PT 12.6 SECONDS (11.8-14.3) 06/07/20 18:20 INR Target Range - 06/07/20 18: INR 0.97 (0.8-1.3) 06/07/20 18:20 D-Dimer 0.51 ug/ml (0.0-0.57) 06/07/20 18:20 Sodium 138 mmol/L (136-145) 06/07/20 18:20 Corrected Sodium 145 mmol/L (136-145) 06/07/20 18:20 Potassium 4.9 mmol/L (3.5-5.1) 06/07/20 18:20 Chloride 100 mmol/L (98-107) 06/07/20 18:20 Carbon Dioxide 27.8 mmol/L (21-32) 06/07/20 18:20 BUN 26 mg/dL (7-18) H 06/07/20 18:20 Creatinine 1.24 mg/dL (0.70-1.30) 06/07/20 18:20 Est GFR (MDRD) Af Amer > 60 (>60) 06/07/20 18:20 Est GFR (MDRD) Non-Af > 60 (>60) 06/07/20 18:20 Glucose 376 mg/dL (65-99) H 06/07/20 18:20 Calcium 9.2 mg/dL (8.5-10.1) 06/07/20 18:20 Corrected Calcium TNP 06/07/20 18:20 Total Bilirubin 0.50 mg/dL (0.2-1.0) 06/07/20 18:20 AST 26 Units/L (15-37) 06/07/20 18:20 ALT 50 Units/L (12-78) 06/07/20 18:20 Alkaline Phosphatase 105 Units/L (46-116) 06/07/20 18:20 Creatine Kinase 351 Units/L (39-308) H 06/07/20 18:20 CK-MB (CK-2) 5.6 ng/mL (0-4.0) H* 06/07/20 18:20 CK/CKMB % Calc 1.6 % (<4) 06/07/20 18:20 Troponin I < 0.02 ng/mL (0-1.5) 06/07/20 18:20 Total Protein 7.9 g/dL (6.4-8.2) 06/07/20 18:20 Albumin 5.1 g/dL (3.4-5.0) H 06/07/20 18:20 Globulin 2.8 g/dL (2.5-4.5) 06/07/20 18:20 Albumin/Globulin Ratio 1.8 Ratio (1.1-2.1) 06/07/20 18:20 Specimen Type Clean catch urine 06/07/20 20:03 Urine Color Yellow (YELLOW) 06/07/20 20:03 Urine Appearance Slightly hazy (CLEAR) 06/07/20 20:03 Urine pH 6.0 (5.0 - 8.0) 06/07/20 20:03 Ur Specific [place] 1.010 (1.000-1.030) 06/07/20 20:03 Urine Protein 3+ (NEGATIVE) 06/07/20 20:03 Urine Glucose (UA) 4+ (NEGATIVE) 06/07/20 20: Urine Ketones Negative (NEGATIVE) 06/07/20 20: Urine Occult Blood 1+ (NEGATIVE) 06/07/20 20:03 Urine Nitrite Negative (NEGATIVE) 06/07/20 20:03 Urine Bilirubin Negative (NEGATIVE) 06/07/20 20:03 Urine Urobilinogen Normal (NORMAL) 06/07/20 20:03 Ur Leukocyte Esterase Negative (NEGATIVE) 06/07/20 20:03 Urine RBC 0-2 /HPF (0-3) 06/07/20 20:03 Urine WBC 0-2 /HPF (0-5) 06/07/20 20:03 Ur Squamous Epith Cells Rare /HPF (NEGATIVE) 06/07/20 20:03 Urine Bacteria Negative /HPF (NEGATIVE) 06/07/20 20:03 Ur Culture Indicated? No/not indicated 06/07/20 20:03 XRAY XRAY Interpreted by: Radiologist X-ray Results: chest: no acute disease EKG Rate: 71 Rhythm: Paced Opioid Opioid Risk Tool Total: 0 Total Score Risk Category: Low Risk Copyright: Michael DOTSON predicting aberrant behaviors Diagnosis Discharge Problem: Abdominal pain of unknown cause, Chest pain, rule out acute myocardial infarction Hypertension Qualifiers: Hypertension type: unspecified secondary hypertension Qualified Code(s): I15.9 - Secondary hypertension, unspecified Instructions Forms: Precautions for COVID19 Patient Portal Social Distancing
[2020-06-07] MEDS ORDERED: NORMODYNE INJ 20 MG VIAL IVP ONE ×3 (17:59→22:16)
[2020-06-07] MEDS ORDERED: NORMODYNE INJ 20 MG VIAL ONE ×3 (18:08→22:18)
[2020-06-07] MEDS ORDERED: NS 1000 ML 1,000 ML ONE ×2 (18:19→23:03)
[2020-06-07] MEDS: NS 1000 ML 1,000 ML IV SCH ×2 (18:25→23:07)
--- NOTE | 2020-06-07 18:31 | RAD ---
HISTORYChest painSTUDYCHEST, 1 VIEWCOMPARISONNone availableFINDINGSThe trachea is midline. The cardiac silhouette is unremarkable. Left chest wall pacemaker projects in expected positioning. The lungs are clear without focal infiltrate or effusion. The bony thorax is unremarkable.[ ]IMPRESSIONNo acute cardiopulmonary disease.Electronically signed by: MOY DELACRUZ (Jun 07, 2020 18:29:41)
[2020-06-07 18:32] LABS: BASOPHILS # (AUTO) 0.1 X10^3/uL (0.0-0.1); BASOPHILS % (AUTO) 0.7 % (0.2-1.0); EOSINOPHILS # (AUTO) 0.5 x10^3/uL (0.0-0.2); EOSINOPHILS % (AUTO) 5.5 % (0.9-2.9); HEMOGLOBIN 15.6 g/dL (13.5-18.0); LYMPHOCYTES # (AUTO) 1.2 X10^3/uL (1.3-2.9); LYMPHOCYTES % (AUTO) 13.5 % (21.0-51.0); MEAN CORPUSCULAR HEMOGLOBIN 29.6 pg (27.0-34.0); MEAN CORPUSCULAR VOLUME 86.9 fL (80.0-100.0); MEAN PLATELET VOLUME 9.8 fL (7.4-11.0); MONOCYTES # (AUTO) 0.6 x10^3/uL (0.3-0.8); MONOCYTES % (AUTO) 6.8 % (0.0-13.0); NEUTROPHILS # (AUTO) 6.7 x10^3/uL (2.2-4.8); NEUTROPHILS % (AUTO) 73.5 % (42.0-75.0); PLATELET COUNT 100 X10^3/uL (150.0-450.0); RED BLOOD COUNT 5.29 X10^6/uL (4.7-6.0); RED CELL DISTRIBUTION WIDTH 13.1 % (11.6-16.5); WHITE BLOOD COUNT 9.1 X10^3/uL (3.6-10.0)
[2020-06-07] MEDS ORDERED: TORADOL 30 MG VIAL ONE ×2 (18:45→23:24)
[2020-06-07] MEDS ORDERED: TORADOL 30 MG VIAL IVP ONE ×2 (18:48→23:11)
[2020-06-07] MEDS ORDERED: DEMEROL INJ IVP ONE ×4 (19:23→21:44)
[2020-06-07] MEDS ORDERED: DEMEROL INJ ONE ×3 (19:23→21:45)
[2020-06-07 19:51] LABS: BLOOD UREA NITROGEN 26 mg/dL (7-18); CALCIUM 9.2 mg/dL (8.5-10.1); CARBON DIOXIDE 27.8 mmol/L (21-32); CHLORIDE 100 mmol/L (98-107); COR NA(FOR HYPERGLY) 145 mmol/L (136-145); CREATININE 1.24 mg/dL (0.70-1.30); SODIUM 138 mmol/L (136-145); eGFR NON BLACK RACES > 60 (>60)
[2020-06-07 20:01] LABS: CREATINE KINASE 351 Units/L (39-308)
[2020-06-07] MEDS ORDERED: HumuLIN R IV STA (20:27)
[2020-06-07] MEDS ORDERED: HumuLIN R ONE (20:30)
[2020-06-07 20:35] LABS: BILIRUBIN,URINE NEGATIVE (NEGATIVE); BLOOD/HEMOGLOBIN,URINE 1+ (NEGATIVE); GLUCOSE, URINE 4+ (NEGATIVE); KETONES,URINE NEGATIVE (NEGATIVE); LEUKOCYTE ESTERASE ,URINE NEGATIVE (NEGATIVE); NITRITES,URINE NEGATIVE (NEGATIVE); PROTEIN,URINE 3+ (NEGATIVE); UROBILINOGEN,URINE NORMAL (NORMAL)
[2020-06-07 20:39] LABS: CKMB % 1.6 % (<4); CREATINE KINASE MB 5.6 ng/mL (0-4.0)
[2020-06-07 20:45] LABS: APPEARANCE,URINE SLIGHTLY HAZY (CLEAR); COLOR,URINE YELLOW (YELLOW)
[2020-06-07 20:46] LABS: BACTERIA,URINE NEGATIVE /HPF (NEGATIVE); RBC,URINE 0-2 /HPF (0-3); SQUAMOUS EPITHELIAL CELL,UR RARE /HPF (NEGATIVE)
[2020-06-07 20:49] LABS: ALANINE AMINOTRANSFERASE 50 Units/L (12-78); ALBUMIN 5.1 g/dL (3.4-5.0); ALKALINE PHOSPHATASE 105 Units/L (46-116); ASPARTATE AMINO TRANSFERASE 26 Units/L (15-37); TOTAL PROTEIN 7.9 g/dL (6.4-8.2); TROPONIN I < 0.02 ng/mL (0-1.5)
--- NOTE | 2020-06-07 22:03 | CT ---
STUDY: CTA CHEST, ABDOMEN, AND PELVIS WITHOUT AND WITH IV CONTRASTCOMPARISON: NoneTECHNIQUE: Axial images were acquired of the chest, abdomen, and pelvis without and with IV contrast for the purposes of CT angiography. Sagittal and coronal reformatted images were provided. All images were reviewed in a variety of windows and levels. 3D MIPS were performed and reviewed.RADIATION REDUCTION TECHNIQUE: Automated exposure control, Adjustment of the mA and/or kV according to patient size, or iterative reconstruction techniques were used.HISTORY: DIPHORESIS, SEVERE BACK PAIN, HTN, R/O ANEURYSMFINDINGS:CHEST:?THYROID GLANDS: The thyroid gland is unremarkable.?HEART AND VESSELS: Status post midline sternotomy. Transvenous pacing wires are noted. The heart size is within normal limits. There is no evidence of pericardial effusion. Thoracic aorta is normal in size without evidence of an aneurysm or dissection. Main pulmonary artery size is within normal limits. There are no gross filling defect seen within the visualized pulmonary arteries to suggest a pulmonary embolism.?LYMPH NODES: There is no evidence of axillary or mediastinal lymphadenopathy. Right hilar lymphadenopathy is seen measuring 19 mm in short axis. There is no evidence of left hilar lymphadenopathy.?AIRWAY: The trachea mainstem bronchi are patent. No intraluminal lesions are seen. ?LUNGS: Discoid atelectasis is seen along the subpleural surface of the left lower lung zone.. There is no evidence of consolidation, pleural effusion, or pneumothorax.ESOPHAGUS: The esophagus is grossly unremarkable.?BONES: The visualized bones demonstrate degenerative changes. There are no concerning lytic or blastic lesions identified.ABDOMEN AND PELVIS:LIVER: No intrahepatic focal lesions are seen. No evidence of intrahepatic or extrahepatic biliary duct dilation.GALLBLADDER: The gallbladder contains tiny layering gallstones.SPLEEN: The spleen enhances homogeneously and is unremarkable.PANCREAS: The pancreas enhances homogeneously and is unremarkable.ADRENAL GLANDS: The adrenal glands enhance homogeneously and are unremarkable.: The kidneys enhance homogeneously and symmetrically. Their collecting system is of normal caliber. Left-sided nonobstructing nephrolithiasis is noted.URINARY BLADDER: The urinary bladder is unremarkable. There are no soft tissue masses seen within the urinary bladder.?VESSELS: The abdominal aorta is normal in size without evidence of an aneurysm or dissection. However there is partially calcified mural thrombus seen along the infrarenal abdominal aorta. The celiac artery, superior mesenteric artery, [place] renal arteries, and inferior mesenteric artery are patent. Heavy calcified plaque burden is seen in the origins of the right and left renal artery.?GI: The stomach and small bowel is unremarkable. Few scattered diverticula are seen without evidence of diverticulitis. There are no inflammatory changes seen in the right lower quadrant to suggest secondary signs of acute appendicitis.LYMPH NODES AND MESENTERY: There is no evidence of retroperitoneal or mesenteric lymphadenopathy. Scattered lymph nodes that are seen in the retroperitoneum and mesentery do not meet CT criteria for large lymph nodes.BONES: The visualized bones demonstrate degenerative changes. There are no concerning lytic or blastic lesions identified.IMPRESSION:1. Patient is status post midline sternotomy with transvenous pacing wires in place2. There is no evidence of a thoracoabdominal aortic aneurysm or dissection. Moderate degree of calcified and soft tissue mural plaques are seen with associated mural thrombus in the infrarenal abdominal aorta.3. Layering gallstones are noted4. Left-sided nonobstructing nephrolithiasis is present5. Incidentally noted is right hilar lymphadenopathy. This may be reactive in etiology. Follow-up to complete resolution may be obtained if this is felt to be clinically indicated.Electronically signed by: Donny Diaz (Jun 07, 2020 22:01:57)
[2020-06-07] MEDS ORDERED: NORMODYNE INJ 20 MG VIAL IV ONE (22:16)
[2020-06-07] MEDS ORDERED: NORVASC TAB 5 MG PO ONE (22:39)
[2020-06-07] MEDS ORDERED: NORVASC TAB 5 MG ONE (23:03)
[2020-06-07] MEDS ORDERED: ATIVAN TAB 1 MG PO PRN (23:16)
[2020-06-08 00:13] LABS: CKMB % 1.9 % (<4); TROPONIN I 0.05 ng/mL (0-1.5)
[2020-06-08 00:15] LABS: CREATINE KINASE MB 4.7 ng/mL (0-4.0)
[2020-06-08] MEDS ORDERED: RESTORIL CAP 15 MG PO ONE (01:04)
[2020-06-08] MEDS: RESTORIL CAP 15 MG PO PRN ×2 (01:13→22:45)
[2020-06-08 01:57] VITALS: BMI 28.0
[2020-06-08] MEDS ORDERED: MORPHINE SULFATE INJ 2 MG INJ ONE (01:59)
[2020-06-08] MEDS: MORPHINE SULFATE INJ 2 MG INJ IVP PRN ×4 (02:09→15:18)
[2020-06-08] MEDS: HumuLIN R SUBCUT PRN (06:00)
[2020-06-08 07:13] LABS: ALANINE AMINOTRANSFERASE 44 Units/L (12-78); ALBUMIN 4.7 g/dL (3.4-5.0); ALKALINE PHOSPHATASE 83 Units/L (46-116); ASPARTATE AMINO TRANSFERASE 24 Units/L (15-37); BLOOD UREA NITROGEN 25 mg/dL (7-18); CALCIUM 9.1 mg/dL (8.5-10.1); CARBON DIOXIDE 26.1 mmol/L (21-32); CHLORIDE 101 mmol/L (98-107); CHOL/HDL RATIO 4.1 (0.0-5.0); CHOLESTEROL 145 mg/dL (0-200); CKMB % 1.8 % (<4); COR NA(FOR HYPERGLY) 143 mmol/L (136-145); CREATINE KINASE 293 Units/L (39-308); CREATININE 1.18 mg/dL (0.70-1.30); HDL CHOLESTEROL 35 mg/dL (40-60); SODIUM 138 mmol/L (136-145); TOTAL PROTEIN 7.9 g/dL (6.4-8.2); TRIGLYCERIDES 67 mg/dL (0-150); TROPONIN I 0.03 ng/mL (0-1.5); eGFR NON BLACK RACES > 60 (>60)
[2020-06-08 07:14] LABS: CREATINE KINASE MB 5.3 ng/mL (0-4.0)
[2020-06-08] MEDS: NS 1000 ML 1,000 ML IV SCH ×5 (08:11→21:44)
[2020-06-08] MEDS ORDERED: ZESTRIL TAB 10 MG ONE (08:55)
[2020-06-08] MEDS ORDERED: ZESTRIL TAB 20 MG PO SCH (09:00)
[2020-06-08] MEDS ORDERED: MULTIVITAMIN PO SCH (09:00)
[2020-06-08] MEDS: ASPIRIN EC 81 MG PO SCH (09:53)
[2020-06-08] MEDS: AMARYL TAB 4 MG PO SCH ×2 (09:53→20:39)
[2020-06-08] MEDS: CLARITIN PO SCH (09:54)
[2020-06-08] MEDS: TAB-A-VITE PO SCH (09:54)
[2020-06-08] MEDS: LANTUS SC SCH ×2 (09:55→20:39)
[2020-06-08] MEDS: NORVASC TAB 5 MG PO SCH ×2 (09:55→20:39)
[2020-06-08] MEDS: TOPROL XL PO SCH (09:57)
[2020-06-08] MEDS: PRAVACHOL PO SCH (09:58)
[2020-06-08] MEDS: ZESTRIL TAB 10 MG PO SCH (10:12)
[2020-06-08] MEDS: TORADOL 30 MG VIAL IVP PRN ×2 (11:50→19:20)
[2020-06-08] MEDS: PROTONIX INJ 40 MG VIAL IVP SCH (11:50)
[2020-06-08 12:10] LABS: CKMB % 1.5 % (<4); TROPONIN I 0.03 ng/mL (0-1.5)
[2020-06-08 12:14] LABS: CREATINE KINASE MB 6.5 ng/mL (0-4.0)
[2020-06-08 19:20] LABS: CKMB % 1.1 % (<4); TROPONIN I 0.04 ng/mL (0-1.5)
[2020-06-08 19:21] LABS: CREATINE KINASE MB 8.1 ng/mL (0-4.0)
[2020-06-08] MEDS ORDERED: SNACK - Diabetic Appropriate PO SCH (20:00)
[2020-06-08] MEDS ORDERED: LEVSIN/MAALOX/LIDOC VISC PO ONE (20:21)
[2020-06-08] MEDS ORDERED: TORADOL 30 MG VIAL IVP ONE (20:22)
[2020-06-08] MEDS ORDERED: LEVSIN/MAALOX/LIDOC VISC ONE (20:25)
[2020-06-08] MEDS: SNACK - Diabetic Appropriate PO SCH ×2 (20:38)
[2020-06-08 20:57] LABS: CKMB % 1.1 % (<4); TROPONIN I 0.05 ng/mL (0-1.5)
[2020-06-08 20:59] LABS: CREATINE KINASE MB 9.2 ng/mL (0-4.0)
[2020-06-08] MEDS ORDERED: TORADOL 15 MG VIAL IVP PRN (21:21)
[2020-06-08] MEDS ORDERED: DILAUDID INJ ONE (21:36)
[2020-06-08] MEDS ORDERED: FLOMAX ONE (21:37)
[2020-06-08] MEDS ORDERED: NS 1000 ML 1,000 ML ONE (21:37)
[2020-06-08] MEDS: FLOMAX PO SCH (21:44)
[2020-06-08] MEDS: DILAUDID INJ IVP PRN (21:45)
[2020-06-09] MEDS: DILAUDID INJ IVP PRN (03:15)
[2020-06-09 06:11] LABS: BASOPHILS % (AUTO) 0.6 % (0.2-1.0); EOSINOPHILS # (AUTO) 0.2 x10^3/uL (0.0-0.2); EOSINOPHILS % (AUTO) 2.5 % (0.9-2.9); HEMOGLOBIN 15.4 g/dL (13.5-18.0); LYMPHOCYTES % (AUTO) 13.3 % (21.0-51.0); MEAN CORPUSCULAR HEMOGLOBIN 29.4 pg (27.0-34.0); MEAN CORPUSCULAR HGB CONC 34.3 g/dL (33.0-35.0); MEAN CORPUSCULAR VOLUME 85.9 fL (80.0-100.0); MEAN PLATELET VOLUME 9.4 fL (7.4-11.0); MONOCYTES # (AUTO) 0.7 x10^3/uL (0.3-0.8); NEUTROPHILS # (AUTO) 5.6 x10^3/uL (2.2-4.8); NEUTROPHILS % (AUTO) 74.6 % (42.0-75.0); PLATELET COUNT 105 X10^3/uL (150.0-450.0); RED BLOOD COUNT 5.24 X10^6/uL (4.7-6.0); RED CELL DISTRIBUTION WIDTH 13.4 % (11.6-16.5); WHITE BLOOD COUNT 7.5 X10^3/uL (3.6-10.0)
[2020-06-09 06:58] LABS: ALANINE AMINOTRANSFERASE 41 Units/L (12-78); ALBUMIN 4.2 g/dL (3.4-5.0); ALKALINE PHOSPHATASE 74 Units/L (46-116); ASPARTATE AMINO TRANSFERASE 32 Units/L (15-37); BLOOD UREA NITROGEN 31 mg/dL (7-18); CALCIUM 8.9 mg/dL (8.5-10.1); CHLORIDE 103 mmol/L (98-107); COR NA(FOR HYPERGLY) 142 mmol/L (136-145); CREATINE KINASE 667 Units/L (39-308); SODIUM 139 mmol/L (136-145); TOTAL PROTEIN 7.4 g/dL (6.4-8.2); TROPONIN I 0.03 ng/mL (0-1.5); eGFR NON BLACK RACES > 60 (>60)
[2020-06-09 07:05] LABS: CREATINE KINASE MB 6.4 ng/mL (0-4.0)
[2020-06-09] MEDS: ASPIRIN EC 81 MG PO SCH (09:07)
[2020-06-09] MEDS: AMARYL TAB 4 MG PO SCH ×2 (09:07→21:04)
[2020-06-09] MEDS: FLOMAX PO SCH ×2 (09:08→21:04)
[2020-06-09] MEDS: NORVASC TAB 5 MG PO SCH ×2 (09:08→21:05)
[2020-06-09] MEDS: CLARITIN PO SCH (09:08)
[2020-06-09] MEDS: PROTONIX INJ 40 MG VIAL IVP SCH (09:09)
[2020-06-09] MEDS: PRAVACHOL PO SCH (09:09)
[2020-06-09] MEDS: TAB-A-VITE PO SCH (09:10)
[2020-06-09] MEDS: TOPROL XL PO SCH (09:10)
[2020-06-09] MEDS: ZESTRIL TAB 10 MG PO SCH (09:10)
[2020-06-09] MEDS: LANTUS SC SCH ×2 (09:11→21:04)
[2020-06-09] MEDS: HumuLIN R SUBCUT PRN (11:56)
[2020-06-09] MEDS: NS 1000 ML 1,000 ML IV SCH (12:58)
[2020-06-09] MEDS: SNACK - Diabetic Appropriate PO SCH ×2 (21:04)
[2020-06-09] MEDS: RESTORIL CAP 15 MG PO PRN (21:07)
[2020-06-09] MEDS ORDERED: NS 1000 ML 1,000 ML IV SCH (22:00)
[2020-06-10 06:21] LABS: BASOPHILS # (AUTO) 0.1 X10^3/uL (0.0-0.1); EOSINOPHILS # (AUTO) 0.4 x10^3/uL (0.0-0.2); EOSINOPHILS % (AUTO) 4.4 % (0.9-2.9); HEMATOCRIT 43.3 % (42.0-54.0); LYMPHOCYTES % (AUTO) 12.3 % (21.0-51.0); MEAN CORPUSCULAR HEMOGLOBIN 29.7 pg (27.0-34.0); MEAN CORPUSCULAR HGB CONC 34.6 g/dL (33.0-35.0); MEAN CORPUSCULAR VOLUME 85.9 fL (80.0-100.0); MEAN PLATELET VOLUME 9.3 fL (7.4-11.0); MONOCYTES % (AUTO) 12.1 % (0.0-13.0); NEUTROPHILS # (AUTO) 5.9 x10^3/uL (2.2-4.8); NEUTROPHILS % (AUTO) 70.2 % (42.0-75.0); PLATELET COUNT 107 X10^3/uL (150.0-450.0); RED BLOOD COUNT 5.04 X10^6/uL (4.7-6.0); RED CELL DISTRIBUTION WIDTH 13.4 % (11.6-16.5); WHITE BLOOD COUNT 8.4 X10^3/uL (3.6-10.0)
[2020-06-10 06:24] LABS: ALANINE AMINOTRANSFERASE 36 Units/L (12-78); ALBUMIN 3.8 g/dL (3.4-5.0); ALKALINE PHOSPHATASE 68 Units/L (46-116); ASPARTATE AMINO TRANSFERASE 25 Units/L (15-37); BLOOD UREA NITROGEN 37 mg/dL (7-18); CALCIUM 8.8 mg/dL (8.5-10.1); CARBON DIOXIDE 27.7 mmol/L (21-32); CHLORIDE 104 mmol/L (98-107); COR NA(FOR HYPERGLY) 141 mmol/L (136-145); CREATININE 0.96 mg/dL (0.70-1.30); SODIUM 140 mmol/L (136-145); TOTAL PROTEIN 6.9 g/dL (6.4-8.2); eGFR NON BLACK RACES > 60 (>60)
--- NOTE | 2020-06-10 06:43 | CT ---
HISTORYAbdominal painSTUDYCT abdomen pelvis without contrastTechnique: Axial noncontrast images with coronal and sagittal reformats. Dose reduction procedures were used with mA/kv adjusted for body size. This examination is limited due to the lack of intravenous and oral contrast. The examination was performed in this manner at the sole discretion of the ordering caregiver.YQCMRYMRRE06/30/2020FINDINGSThe lung bases are clear. The liver, spleen, adrenal glands, an d pancreas are within normal limits to the limitations of an unenhanced examination. Dense material i s identified within the gallbladder likely related to prior contrasted examination 06/07/2020. Small gallstones are present. The kidneys are unobstructed. No definite right renal calculi are identified. Nonobstructing left renal calculi are present measuring 1 mm and 4 mm. No ureteral calculi are ident ified. Calcific atherosclerotic changes present in a nondilated abdominal aorta. No intraperitoneal o r retroperitoneal lymphadenopathy of significance is identified. There are no findings suggestive of enteritis, colitis, or diverticulitis. The patient is status post appendectomy by history. Examinatio n of the pelvis demonstrated no evidence for pelvic masses, pelvic fluid, or pelvic lymphadenopathy. No definite bladder abnormality is identified. No lytic or blastic skeletal lesions of significance a re identified.IMPRESSIONNo definite acute intra-abdominal or intrapelvic abnormality to the limitatio ns of an examination performed without intravenous and without oral contrastCholelithiasis without ev idence for cholecystitisNonobstructing left nephrolithiasisElectronically signed by: KIAH SANTAMARIA (N 2019 06:42:11)
[2020-06-10 09:03] VITALS: BP 174/76
[2020-06-10] MEDS: AMARYL TAB 4 MG PO SCH (09:44)
[2020-06-10] MEDS: ASPIRIN EC 81 MG PO SCH (09:44)
[2020-06-10] MEDS: NORVASC TAB 5 MG PO SCH (09:45)
[2020-06-10] MEDS: CLARITIN PO SCH (09:45)
[2020-06-10] MEDS: FLOMAX PO SCH (09:45)
[2020-06-10] MEDS: TOPROL XL PO SCH (09:46)
[2020-06-10] MEDS: PROTONIX INJ 40 MG VIAL IVP SCH (09:46)
[2020-06-10] MEDS: PRAVACHOL PO SCH (09:46)
[2020-06-10] MEDS: TAB-A-VITE PO SCH (09:46)
[2020-06-10] MEDS: ZESTRIL TAB 10 MG PO SCH (09:47)
--- NOTE | 2020-06-10 10:34 | DR.H&P ---
H&P - History & Physical for Day of: H&P Date: 06/07/20 - Chief Complaint Chief Complaint: GENERALIZED WEAKNESS, ABDOMINAL PAIN, BACK PAIN, GROIN PAIN - History of Present Illness History of Present Illness: IS A 70 YEAR OLD WHITE MALE, WHO IS A PATIENT OF OURS. HE PRESENTED TO THE ER WITH COMPLAINTS OF SUDDEN ONSET OF GENERALIZED WEAKNESS AND DIAPHORESIS AT HOME. SYMPTOMS STARTED ABOUT ONE HOUR PRIOR TO ARRIVAL. HE DENIES FEVER OR CHEST PAIN. HE DOES ADMIT TO PAIN IN THE MID AND LOWER BACK, ABDOMEN, AND GROIN. PAIN IS DESCRIBED SHARP AND IS RATED 10/10. HE DOES HAVE A PMH OF HTN, DIABETES, PACEMAKER, AND CABG. ON ARRIVAL TO THE ER, VITALS WERE 99.0-78-22-99%RA-180/100. LABS WERE OBTAINED. ABNORMAL LAB VALUES INCLUDE THE FOLLOWING: PLT COUNT 100, BUN 26, GLUCOSE 376, CREATINE KINASE 3351, ALBUMIN 5.1, CK-MB 5.6. URINALYSIS REVEALED: WBC 0-2, RBC 0-2, BACTERIA NEGATIVE, OCCULT BLOOD 1+, PROTEIN 3+, GLUCOSE 4+. A CHEST XRAY WAS OBTAINED AND REVEALED: The trachea is midline. The cardiac silhouette is unremarkable. Left chest wall pacemaker projects in expected positioning. The lungs are clear without focal infiltrate or effusion. The bony thorax is unremarkable. EKG REVEALED: ATRIAL SENSED VENTRICULAR PACED RHYTHM WITH HR 71. AN ABDOMEN/PELVIS CTA WITH AND WITHOUT CONTRAST WAS OBTAINED AND REVEALED: 1. Patient is status post midline sternotomy with transvenous pacing wires in place 2. There is no evidence of a thoracoabdominal aortic aneurysm or dissection. Moderate degree of calcified and soft tissue mural plaques are seen with associated mural thrombus in the infrarenal abdominal aorta. 3. Layering galls tones are noted 4. Left-sided nonobstructing nephrolithiasis is present 5. Incidentally noted is right hilar lymphadenopathy. This may be reactive in etiology. CARDIAC ENZYMES WERE REPEATED AT 23:25 AND REVEALED: CREATINE KINASE 250, CK-MB 4.7, TROPONIN SLIGHTLY INCREASED FROM <0.02 TO 0.05. HE WAS GIVEN NORMODYNE 20MG IV X 1 AT 18:17 AND TORADOL 30MG IV X 1. HE CONTINUED WITH PAIN AT WAS GIVEN DEMEROL 25MG IV X 1 AT 19:26. HE WAS THEN GIVEN NORMODYNE 40MG IV X 1 AT 20:34. BLOOD PRESSURE REMAINED ELEVATED AND HE CONTINUED WITH PAIN. HE WAS THEN GIVEN NORMODYNE 40MG IV X 1 AT 20:34, DEMEROL 25MG IV X 1, AND HUMULIN R 8 UNITS SC X 1 DUE TO ELEVATED BLOOD GLUCOSE. BLOOD PRESSURE AT 20:40 WAS NOTED TO BE 168/79. BY 22:30, BLOOD PRESSURE HAD INCREASED TO 179/84 AGAIN. HE WAS THEN GIVEN NORMYDYNE 40MG IV X 1 AGAIN. HE WAS ALSO GIVEN AN ADDITIONAL DOSE OF DEMEROL 25 MG IV X 1 FOR PAIN. AT 23:00, BLOOD PRESSURE REMAINED ELEVATED. HE WAS GIVEN AMLODIPINE 10MG PO X 1 AND TORADOL 30MG IV X 1 DOSE. HE WAS ADMITTED TO THE HOSPITAL FOR FURTHER EVALUATION AND TREATMENT OF UNCONTROLLED HYPERTENSION, ABDOMINAL PAIN, NEPHROLITHIASIS, AND CHOLELITHIASIS. HE WAS STARTED ON NORMAL SALINE AT 75 ML/HR, TORADOL 15MG IV Q6H PRN, DILAUDID 1MG IV Q6H PRN, MORPHINE 2MG IV Q4H PRN, FLOMAX 0.4MG PO BID, NORVASC 5MG PO BID, ECOTRIN 81MG PO DAILY, GLIMEPIRIDE 2MG PO BID, LANTUS 40 UNITS SC BID, HUMULIN R SLIDING SCALE, ZESTRIL 10MG PO DAILY, CLARITIN 10MG PO DAILY, ATIVAN 1MG PO Q8H PRN, METOPROLOL SUCCINATE 50MG PO DAILY, MULTIVITAMIN 1 TAB PO DAILY, PROTONIX 40MG IV DAILY, PRAVACHOL 40MG PO DAILY, AND RESTORIL 15MG PO HS PRN. WE WILL OBTAIN SERIAL CARDIAC ENZYMES AND EKGS TO RULE OUT ACUTE OK. OTHERWISE, WE WILL FOLLOW UP WITH AM LABS AND CONTINUE TO MONITOR. TIME SPENT ON CLINICAL ASSESSMENT, REVIEWING LABS AND IMAGING, DECISION MAKING, AND DOCUMENTATION WAS GREATER THAN 74 MINUTES. - Past Medical History Past Medical History: Hypertension, Diabetes, COPD, PUD, Arthritis - Past Surgical History Surgical History: Appendectomy, CABG/Valve Surgery, Ortho Surgery, Tonsillectomy, Other - Family History Family Medical History: Diabetes Mellitus, Cancer, Coronary Artery Disease - Social History Does patient currently use any type of tobacco product: No Have you used tobacco products in the last 12 months: No Type of Tobacco Use: None Does any household member use tobacco: No Alcohol Use: None Drug Use: None - Medications Home Medications: No Known Drug Allergies Allergy (Verified 04/05/17 18:03) CONTINUE taking the following medications insulin lispro [Humalog KwikPen Insulin] 0 unit SUBCUT . PRESCRIBED 06/08/20 [History] New Prescriptions tamsulosin 0.4 mg PO BID #20 cap 06/10/20 [Rx] - Review of Systems Constitutional: Weakness Eyes: No Symptoms Reported ENT: No Symptoms Reported Respiratory: No Symptoms Reported Cardiovascular: No Symptoms Reported Gastrointestinal: See HPI, Abdominal Pain Genitourinary: No Symptoms Reported Musculoskeletal: Back Pain Skin: Other (DIAPHORESIS ) Neurological: Weakness - Physical Exam Vital Signs: Temperature 98.0 F Pulse Rate [Left Radial] 67 Pulse Rate 78 Respiratory Rate 18 Blood Pressure [Right Arm] 193/90 Blood Pressure [Left Arm] 174/76 Blood Pressure 180/100 O2 Sat by Pulse Oximetry 96 Oriented: Normal Eyes: Normal Ear: Normal Nose: Normal Throat: Normal Respiratory: Diminished Throughout Cardiovascular: Normal : Normal Auscultation: Bowel Sounds: Normal Palpation: Normal Tenderness: Diffuse, Moderate Skin: Diaphoresis Musculoskeletal: Back:Thoracic, Back:Lumbar, Tender Psychiatric: Normal Mood Description: Calm Affect: Normal Speech Pattern: Clear - Assessment/Plan (1) Uncontrolled hypertension Status: Acute Plan: ADMIT, NORMAL SALINE AT 75 ML/HR, TORADOL 15MG IV Q6H PRN, DILAUDID 1MG IV Q6H PRN, MORPHINE 2MG IV Q4H PRN, FLOMAX 0.4MG PO BID, NORVASC 5MG PO BID, ECOTRIN 81MG PO DAILY, GLIMEPIRIDE 2MG PO BID, LANTUS 40 UNITS SC BID, HUMULIN R SLIDING SCALE, ZESTRIL 10MG PO DAILY, CLARITIN 10MG PO DAILY, ATIVAN 1MG PO Q8H PRN, METOPROLOL SUCCINATE 50MG PO DAILY, MULTIVITAMIN 1 TAB PO DAILY, PROTONIX 40MG IV DAILY, PRAVACHOL 40MG PO DAILY, AND RESTORIL 15MG PO HS PRN. (2) Abdominal pain Qualifiers: Abdominal location: generalized Qualified Code(s): R10.84 - Generalized abdominal pain Status: Acute (3) Nephrolithiasis Status: Acute (4) Cholelithiasis Qualifiers: Cholelithiasis location: gallbladder Cholecystitis presence: without cholecystitis Biliary obstruction: without biliary obstruction Qualified Code(s): K80.20 - Calculus of gallbladder without cholecystitis without obstruction Status: Acute (5) Back pain Qualifiers: Back pain location: back pain in unspecified location Chronicity: acute Back pain laterality: unspecified Qualified Code(s): M54.9 - Dorsalgia, unspecified Status: Acute - Allergies Allergies/Adverse Reactions: Allergies Allergy/AdvReac Type Severity Reaction Status Date / Time No Known Drug Allergies Allergy Verified 04/05/17 18:03
--- NOTE | 2020-06-10 10:56 | PCM.PROG ---
Progress Note - Progress Note for Day of Date of Exam: 06/08/20 - Subjective Subjective: IS BEING TREATED FOR UNCONTROLLED HYPERTENSION, NEPHROLITHIASIS, CHOLELITHIASIS, ABDOMINAL PAIN, BACK PAIN, AND GENERALIZED WEAKNESS. TODAY, HE IS ALERT, LYING IN BED ON MORNING ROUNDS. HE CONTINUES WITH COMPLAINTS OF ABDOMINAL PAIN AND LOWER BACK PAIN TODAY. HE HAS REMAINED HYPERTENSIVE THROUGHOUT THE NIGHT. ON EXAMINATION, HEART IS REGULAR IN RATE AND RHYTHM. BILATERAL LUNGS ARE NOTED WITH DIMINISHED LUNG SOUNDS THROUGHOUT. ABDOMEN IS ROUND, SOFT, AND NOTED WITH SUPRAPUBIC TENDERNESS. LOWER BACK PAIN IS DESCRIBED DULL, BUT NO TENDERNESS NOTED ON EXAMINATION. HIS VITALS THIS MORNING ARE: 98.2-67-20-98%-202/84. LABS WERE OBTAINED. ABNORMAL LAB VALUES INCLUDE THE FOLLOWING: BUN 25, GLUCOSE 324, CK-MB 5.3, TROPONIN 0.03, HCL 35. NO CHANGES NOTED TO EKGs. HE IS CURRENTLY RECEIVING NORMAL SALINE AT 75 ML/HR, TORADOL 15MG IV Q6H PRN, DILAUDID 1MG IV Q6H PRN, MORPHINE 2MG IV Q4H PRN, FLOMAX 0.4MG PO BID, NORVASC 5MG PO BID, ECOTRIN 81MG PO DAILY, GLIMEPIRIDE 2MG PO BID, LANTUS 40 UNITS SC BID, HUMULIN R SLIDING SCALE, ZESTRIL 10MG PO DAILY, CLARITIN 10MG PO DAILY, ATIVAN 1MG PO Q8H PRN, METOPROLOL SUCCINATE 50MG PO DAILY, MULTIVITAMIN 1 TAB PO DAILY, PROTONIX 40MG IV DAILY, PRAVACHOL 40MG PO DAILY, AND RESTORIL 15MG PO HS PRN. WE WILL CONTINUE WITH CURRENT PLAN OF CARE TODAY. OTHERWISE, WE WILL FOLLOW UP WITH AM LABS AND CONTINUE TO MONITOR. - Past Medical Family Social History Past Med/Fam/Surg Hx: No changes since H&P Allergies: Allergies No Known Drug Allergies Allergy (Verified 04/05/17 18:03) - Review of Systems ROS: No change since H&P - Vital Signs and I&O's Vital Signs: Temperature 98.0 F Pulse Rate [Left Radial] 67 Pulse Rate 78 Respiratory Rate 18 Blood Pressure [Right Arm] 193/90 Blood Pressure [Left Arm] 174/76 Blood Pressure 180/100 O2 Sat by Pulse Oximetry 96 Intake and Output: Intake & Output 06/07/20 06/08/20 06/09/20 06/10/20 12:59 12:59 11:59 11:59 Intake Total 2295 / 2295 Output Total 150 / 150 Balance 2145 / 2145 - Physical Exam Oriented: Normal Eyes: Normal Ear: Normal Nose: Normal Throat: Normal Respiratory: Generalized, Diminished Cardiovascular: Normal : Normal Auscultation: Bowel Sounds: Normal Palpation: Normal Tenderness: Diffuse, Mild Skin: Diaphoresis Musculoskeletal: Back:Lumbar Psychiatric: Normal Mood Description: Calm Affect: Normal Speech Pattern: Clear - Laboratory and Diagnostics Result Diagrams: 06/10/20 05:20 06/10/20 05:20 Labs: Laboratory WBC 8.4 X10^3/uL (3.6-10.0) 06/10/20 05:20 RBC 5.04 X10^6/uL (4.7-6.0) 06/10/20 05:20 Hgb 15.0 g/dL (13.5-18.0) 06/10/20 05:20 Hct 43.3 % (42.0-54.0) 06/10/20 05:20 MCV 85.9 fL (80.0-100.0) 06/10/20 05:20 MCH 29.7 pg (27.0-34.0) 06/10/20 05:20 MCHC 34.6 g/dL (33.0-35.0) 06/10/20 05:20 RDW 13.4 % (11.6-16.5) 06/10/20 05:20 Plt Count 107 X10^3/uL (150.0-450.0) L 06/10/20 05:20 MPV 9.3 fL (7.4-11.0) 06/10/20 05:20 Neut % (Auto) 70.2 % (42.0-75.0) 06/10/20 05:20 Lymph % (Auto) 12.3 % (21.0-51.0) L 06/10/20 05:20 [place] % (Auto) 12.1 % (0.0-13.0) 06/10/20 05:20 Eos % (Auto) 4.4 % (0.9-2.9) H 06/10/20 05:20 Baso % (Auto) 1.0 % (0.2-1.0) 06/10/20 05:20 Neut # (Auto) 5.9 x10^3/uL (2.2-4.8) H 06/10/20 05:20 Lymph # (Auto) 1.0 X10^3/uL (1.3-2.9) L 06/10/20 05:20 [place] # (Auto) 1.0 x10^3/uL (0.3-0.8) H 06/10/20 05:20 Eos # (Auto) 0.4 x10^3/uL (0.0-0.2) H 06/10/20 05:20 Baso # (Auto) 0.1 X10^3/uL (0.0-0.1) 06/10/20 05:20 Absolute Nucleated RBC 0.3 /100WBC 06/10/20 05:20 PT 12.6 SECONDS (11.8-14.3) 06/07/20 18:20 INR Target Range - 06/07/20 18:20 INR 0.97 (0.8-1.3) 06/07/20 18:20 D-Dimer 0.51 ug/ml (0.0-0.57) 06/07/20 18:20 Sodium 140 mmol/L (136-145) 06/10/20 05:20 Corrected Sodium 141 mmol/L (136-145) 06/10/20 05:20 Potassium 3.8 mmol/L (3.5-5.1) 06/10/20 05:20 Chloride 104 mmol/L (98-107) 06/10/20 05:20 Carbon Dioxide 27.7 mmol/L (21-32) 06/10/20 05:20 BUN 37 mg/dL (7-18) H 06/10/20 05:20 Creatinine 0.96 mg/dL (0.70-1.30) 06/10/20 05:20 Est GFR (MDRD) Af Amer > 60 (>60) 06/10/20 05:20 Est GFR (MDRD) Non-Af > 60 (>60) 06/10/20 05:20 Glucose 129 mg/dL (65-99) H 06/10/20 05:20 POC Glucose (mg/dL) 119 mg/dL (65-99) H 06/10/20 05:16 Calcium 8.8 mg/dL (8.5-10.1) 06/10/20 05:20 Corrected Calcium TNP 06/10/20 05:20 Total Bilirubin 0.50 mg/dL (0.2-1.0) 06/10/20 05:20 AST 25 Units/L (15-37) 06/10/20 05:20 ALT 36 Units/L (12-78) 06/10/20 05:20 Alkaline Phosphatase 68 Units/L (46-116) 06/10/20 05:20 Creatine Kinase 667 Units/L (39-308) H 06/09/20 05:39 CK-MB (CK-2) 6.4 ng/mL (0-4.0) H* 06/09/20 05:39 CK/CKMB % Calc 1.0 % (<4) 06/09/20 05:39 Troponin I 0.03 ng/mL (0-1.5) 06/09/20 05:39 Total Protein 6.9 g/dL (6.4-8.2) 06/10/20 05:20 Albumin 3.8 g/dL (3.4-5.0) 06/10/20 05:20 Globulin 3.1 g/dL (2.5-4.5) 06/10/20 05:20 Albumin/Globulin Ratio 1.2 Ratio (1.1-2.1) 06/10/20 05:20 Triglycerides 67 mg/dL (0-150) 06/08/20 05:25 Cholesterol 145 mg/dL (0-200) 06/08/20 05:25 LDL Cholesterol, Calc 97 mg/dL (0-100) 06/08/20 05:25 HDL Cholesterol 35 mg/dL (40-60) L 06/08/20 05:25 Cholesterol/HDL Ratio 4.1 (0.0-5.0) 06/08/20 05:25 Specimen Type Clean catch urine 06/07/20 20:03 Urine Color Yellow (YELLOW) 06/07/20 20:03 Urine Appearance Slightly hazy (CLEAR) 06/07/20 20:03 Urine pH 6.0 (5.0 - 8.0) 06/07/20 20:03 Ur Specific [place] 1.010 (1.000-1.030) 06/07/20 20:03 Urine Protein 3+ (NEGATIVE) 06/07/20 20:03 Urine Glucose (UA) 4+ (NEGATIVE) 06/07/20 20:03 Urine Ketones Negative (NEGATIVE) 06/07/20 20: Urine Occult Blood 1+ (NEGATIVE) 06/07/20 20:03 Urine Nitrite Negative (NEGATIVE) 06/07/20 20: Urine Bilirubin Negative (NEGATIVE) 06/07/20 20: Urine Urobilinogen Normal (NORMAL) 06/07/20 20:03 Ur Leukocyte Esterase Negative (NEGATIVE) 06/07/20 20:03 Urine RBC 0-2 /HPF (0-3) 06/07/20 20: Urine WBC 0-2 /HPF (0-5) 06/07/20 20: Ur Squamous Epith Cells Rare /HPF (NEGATIVE) 06/07/20 20: Urine Bacteria Negative /HPF (NEGATIVE) 06/07/20 20: Ur Culture Indicated? No/not indicated 06/07/20 20:03 - Plan (1) Uncontrolled hypertension Status: Acute Plan: NORMAL SALINE AT 75 ML/HR, TORADOL 15MG IV Q6H PRN, DILAUDID 1MG IV Q6H PRN, MORPHINE 2MG IV Q4H PRN, FLOMAX 0.4MG PO BID, NORVASC 5MG PO BID, ECOTRIN 81MG PO DAILY, GLIMEPIRIDE 2MG PO BID, LANTUS 40 UNITS SC BID, HUMULIN R SLIDING SCALE, ZESTRIL 10MG PO DAILY, CLARITIN 10MG PO DAILY, ATIVAN 1MG PO Q8H PRN, METOPROLOL SUCCINATE 50MG PO DAILY, MULTIVITAMIN 1 TAB PO DAILY, PROTONIX 40MG IV DAILY, PRAVACHOL 40MG PO DAILY, AND RESTORIL 15MG PO HS PRN. (2) Abdominal pain Status: Acute Qualifiers: Abdominal location: generalized Qualified Code(s): R10.84 - Generalized abdominal pain (3) Nephrolithiasis Status: Acute (4) Cholelithiasis Status: Acute Qualifiers: Cholelithiasis location: gallbladder Cholecystitis presence: without cholecystitis Biliary obstruction: without biliary obstruction Qualified Code(s): K80.20 - Calculus of gallbladder without cholecystitis without obstruction (5) Back pain Status: Acute Qualifiers: Back pain location: back pain in unspecified location Chronicity: acute Back pain laterality: unspecified Qualified Code(s): M54.9 - Dorsalgia, unspecified
--- NOTE | 2020-06-10 11:00 | PCM.PROG ---
Progress Note - Progress Note for Day of Date of Exam: 06/09/20 - Subjective Subjective: IS BEING TREATED FOR UNCONTROLLED HYPERTENSION, NEPHROLITHIASIS, CHOLELITHIASIS, ABDOMINAL PAIN, BACK PAIN, AND GENERALIZED WEAKNESS. TODAY, HE IS ALERT, LYING IN BED ON MORNING ROUNDS. HE CONTINUES WITH COMPLAINTS OF ABDOMINAL PAIN AND LOWER BACK PAIN TODAY. HE DOES REPORT SLIGHT IMPROVEMENT IN SYMPTOMS TODAY. HIS BLOOD PRESSURE HAS DECREASED SINCE YESTERDAY. ON EXAMINATION, HEART IS REGULAR IN RATE AND RHYTHM. BILATERAL LUNGS ARE NOTED WITH DIMINISHED LUNG SOUNDS THROUGHOUT. ABDOMEN IS ROUND, SOFT, AND NOTED WITH SUPRAPUBIC TENDERNESS. HIS VITALS THIS MORNING ARE: 97.9-62-20-98%[place]-184/81. LABS WERE OBTAINED. ABNORMAL LAB VALUES INCLUDE THE FOLLOWING: PLT COUNT 105, BUN 31, GLUCOSE 222, CREATINE KINASE 667, CK-MB 6.4. HE IS CURRENTLY RECEIVING NORMAL SALINE AT 75 ML/HR, TORADOL 15MG IV Q6H PRN, DILAUDID 1MG IV Q6H PRN, MORPHINE 2MG IV Q4H PRN, FLOMAX 0.4MG PO BID, NORVASC 5MG PO BID, ECOTRIN 81MG PO DAILY, GLIMEPIRIDE 2MG PO BID, LANTUS 40 UNITS SC BID, HUMULIN R SLIDING SCALE, ZESTRIL 10MG PO DAILY, CLARITIN 10MG PO DAILY, ATIVAN 1MG PO Q8H PRN, METOPROLOL SUCCINATE 50MG PO DAILY, MULTIVITAMIN 1 TAB PO DAILY, PROTONIX 40MG IV DAILY, PRAVACHOL 40MG PO DAILY, AND RESTORIL 15MG PO HS PRN. WE WILL CONTINUE WITH CURRENT PLAN OF CARE TODAY AND DECREASE IV FLUIDS TO 25 ML/HR. WE WILL REPEAT AN ABDOMEN/PELVIS CT IN THE MORNING. OTHERWISE, WE WILL FOLLOW UP WITH AM LABS AND CONTINUE TO MONITOR. - Past Medical Family Social History Past Med/Fam/Surg Hx: No changes since H&P Allergies: Allergies No Known Drug Allergies Allergy (Verified 04/05/17 18:03) - Review of Systems ROS: No change since H&P - Vital Signs and I&O's Vital Signs: Temperature 98.0 F Pulse Rate [Left Radial] 67 Pulse Rate 78 Respiratory Rate 18 Blood Pressure [Right Arm] 193/90 Blood Pressure [Left Arm] 174/76 Blood Pressure 180/100 O2 Sat by Pulse Oximetry 96 Intake and Output: Intake & Output 06/07/20 06/08/20 06/09/20 06/10/20 12:59 12:59 11:59 11:59 Intake Total 2295 / 2295 Output Total 150 / 150 Balance 2145 / 2145 - Physical Exam Oriented: Normal Eyes: Normal Ear: Normal Nose: Normal Throat: Normal Respiratory: Generalized, Diminished Cardiovascular: Normal : Normal Auscultation: Bowel Sounds: Normal Tenderness: Diffuse, Mild Skin: Diaphoresis Musculoskeletal: Back:Lumbar Psychiatric: Normal Mood Description: Calm Affect: Normal Speech Pattern: Clear - Laboratory and Diagnostics Result Diagrams: 06/10/20 05:20 06/10/20 05:20 Labs: Laboratory WBC 8.4 X10^3/uL (3.6-10.0) 06/10/20 05:20 RBC 5.04 X10^6/uL (4.7-6.0) 06/10/20 05:20 Hgb 15.0 g/dL (13.5-18.0) 06/10/20 05:20 Hct 43.3 % (42.0-54.0) 06/10/20 05:20 MCV 85.9 fL (80.0-100.0) 06/10/20 05:20 MCH 29.7 pg (27.0-34.0) 06/10/20 05:20 MCHC 34.6 g/dL (33.0-35.0) 06/10/20 05:20 RDW 13.4 % (11.6-16.5) 06/10/20 05:20 Plt Count 107 X10^3/uL (150.0-450.0) L 06/10/20 05:20 MPV 9.3 fL (7.4-11.0) 06/10/20 05:20 Neut % (Auto) 70.2 % (42.0-75.0) 06/10/20 05:20 Lymph % (Auto) 12.3 % (21.0-51.0) L 06/10/20 05:20 [place] % (Auto) 12.1 % (0.0-13.0) 06/10/20 05:20 Eos % (Auto) 4.4 % (0.9-2.9) H 06/10/20 05:20 Baso % (Auto) 1.0 % (0.2-1.0) 06/10/20 05:20 Neut # (Auto) 5.9 x10^3/uL (2.2-4.8) H 06/10/20 05:20 Lymph # (Auto) 1.0 X10^3/uL (1.3-2.9) L 06/10/20 05:20 [place] # (Auto) 1.0 x10^3/uL (0.3-0.8) H 06/10/20 05:20 Eos # (Auto) 0.4 x10^3/uL (0.0-0.2) H 06/10/20 05:20 Baso # (Auto) 0.1 X10^3/uL (0.0-0.1) 06/10/20 05:20 Absolute Nucleated RBC 0.3 /100WBC 06/10/20 05:20 PT 12.6 SECONDS (11.8-14.3) 06/07/20 18:20 INR Target Range - 06/07/20 18:20 INR 0.97 (0.8-1.3) 06/07/20 18:20 D-Dimer 0.51 ug/ml (0.0-0.57) 06/07/20 18:20 Sodium 140 mmol/L (136-145) 06/10/20 05:20 Corrected Sodium 141 mmol/L (136-145) 06/10/20 05:20 Potassium 3.8 mmol/L (3.5-5.1) 06/10/20 05:20 Chloride 104 mmol/L (98-107) 06/10/20 05:20 Carbon Dioxide 27.7 mmol/L (21-32) 06/10/20 05:20 BUN 37 mg/dL (7-18) H 06/10/20 05:20 Creatinine 0.96 mg/dL (0.70-1.30) 06/10/20 05:20 Est GFR (MDRD) Af Amer > 60 (>60) 06/10/20 05:20 Est GFR (MDRD) Non-Af > 60 (>60) 06/10/20 05:20 Glucose 129 mg/dL (65-99) H 06/10/20 05:20 POC Glucose (mg/dL) 119 mg/dL (65-99) H 06/10/20 05:16 Calcium 8.8 mg/dL (8.5-10.1) 06/10/20 05:20 Corrected Calcium TNP 06/10/20 05:20 Total Bilirubin 0.50 mg/dL (0.2-1.0) 06/10/20 05:20 AST 25 Units/L (15-37) 06/10/20 05:20 ALT 36 Units/L (12-78) 06/10/20 05:20 Alkaline Phosphatase 68 Units/L (46-116) 06/10/20 05:20 Creatine Kinase 667 Units/L (39-308) H 06/09/20 05:39 CK-MB (CK-2) 6.4 ng/mL (0-4.0) H* 06/09/20 05:39 CK/CKMB % Calc 1.0 % (<4) 06/09/20 05:39 Troponin I 0.03 ng/mL (0-1.5) 06/09/20 05:39 Total Protein 6.9 g/dL (6.4-8.2) 06/10/20 05:20 Albumin 3.8 g/dL (3.4-5.0) 06/10/20 05:20 Globulin 3.1 g/dL (2.5-4.5) 06/10/20 05:20 Albumin/Globulin Ratio 1.2 Ratio (1.1-2.1) 06/10/20 05:20 Triglycerides 67 mg/dL (0-150) 06/08/20 05:25 Cholesterol 145 mg/dL (0-200) 06/08/20 05:25 LDL Cholesterol, Calc 97 mg/dL (0-100) 06/08/20 05:25 HDL Cholesterol 35 mg/dL (40-60) L 06/08/20 05:25 Cholesterol/HDL Ratio 4.1 (0.0-5.0) 06/08/20 05:25 Specimen Type Clean catch urine 06/07/20 20:03 Urine Color Yellow (YELLOW) 06/07/20 20:03 Urine Appearance Slightly hazy (CLEAR) 06/07/20 20:03 Urine pH 6.0 (5.0 - 8.0) 06/07/20 20:03 Ur Specific [place] 1.010 (1.000-1.030) 06/07/20 20:03 Urine Protein 3+ (NEGATIVE) 06/07/20 20:03 Urine Glucose (UA) 4+ (NEGATIVE) 06/07/20 20:03 Urine Ketones Negative (NEGATIVE) 06/07/20 20:03 Urine Occult Blood 1+ (NEGATIVE) 06/07/20 20:03 Urine Nitrite Negative (NEGATIVE) 06/07/20 20:03 Urine Bilirubin Negative (NEGATIVE) 06/07/20 20:03 Urine Urobilinogen Normal (NORMAL) 06/07/20 20:03 Ur Leukocyte Esterase Negative (NEGATIVE) 06/07/20 20:03 Urine RBC 0-2 /HPF (0-3) 06/07/20 20:03 Urine WBC 0-2 /HPF (0-5) 06/07/20 20:03 Ur Squamous Epith Cells Rare /HPF (NEGATIVE) 06/07/20 20:03 Urine Bacteria Negative /HPF (NEGATIVE) 06/07/20 20:03 Ur Culture Indicated? No/not indicated 06/07/20 20:03 - Plan (1) Uncontrolled hypertension Status: Acute Plan: NORMAL SALINE AT 25 ML/HR, TORADOL 15MG IV Q6H PRN, DILAUDID 1MG IV Q6H PRN, MORPHINE 2MG IV Q4H PRN, FLOMAX 0.4MG PO BID, NORVASC 5MG PO BID, ECOTRIN 81MG PO DAILY, GLIMEPIRIDE 2MG PO BID, LANTUS 40 UNITS SC BID, HUMULIN R SLIDING SCALE, ZESTRIL 10MG PO DAILY, CLARITIN 10MG PO DAILY, ATIVAN 1MG PO Q8H PRN, METOPROLOL SUCCINATE 50MG PO DAILY, MULTIVITAMIN 1 TAB PO DAILY, PROTONIX 40MG IV DAILY, PRAVACHOL 40MG PO DAILY, AND RESTORIL 15MG PO HS PRN. (2) Abdominal pain Status: Acute Qualifiers: Abdominal location: generalized Qualified Code(s): R10.84 - Generalized abdominal pain (3) Nephrolithiasis Status: Acute (4) Cholelithiasis Status: Acute Qualifiers: Cholelithiasis location: gallbladder Cholecystitis presence: without cholecystitis Biliary obstruction: without biliary obstruction Qualified Code(s): K80.20 - Calculus of gallbladder without cholecystitis without obstruction (5) Back pain Status: Acute Qualifiers: Back pain location: back pain in unspecified location Chronicity: acute Back pain laterality: unspecified Qualified Code(s): M54.9 - Dorsalgia, un specified
[2020-06-10] MEDS: LANTUS SC SCH (11:18)
== END 2020-06-10 12:25 | disposition home or self-care (01) | DRG 305 ==
LOC: ER 17:43 → MED/SURG 23:12
PROVIDERS: ADMIT Internal Medicine; ATTEND Internal Medicine